=== PATIENT | female | born 1955 | race Two or more races ===

== ENCOUNTER 2019-07-18 19:02 | Inpatient (IN) | payer MEDICARE, MEDICAID ==
[~2019-07-18] VITALS: Ht 172.7 cm; Wt 69.9 kg
[2019-07-18 19:14] VITALS: BP 157/88
--- NOTE | 2019-07-18 19:14 | NUR ---
ED Nurse Note: pt ambulated into ED from home CO generalized weakness and elevated blood sugar; pt's daughter reports a blood sugar of over 300 at home. pt's daughter states constipation for over a week, pt says she strains and struggles to void d/t previous hx of stroke. pt's home health nurse and PCP Dr. Kirby advise that she come into ED. Awaiting ermd at bedside. BP elevated, ERMD aware. pt aao x 4.
--- NOTE | 2019-07-18 19:15 | NUR ---
ED Nurse Note: pt has weak and impaired gait d/t previous hx of CVA; pt skin intact. Pt has tremors in left arm. pt incontinent but able to use bedpan.
--- NOTE | 2019-07-18 19:19 | NUR ---
ED Nurse Note: pt daughter and sister at bedside
--- NOTE | 2019-07-18 19:20 | NUR ---
ED Nurse Note: ERMD at bedside
--- NOTE | 2019-07-18 19:28 | Emergency Room Report ---
History of Present Illness General Chief Complaint: Generalized Weakness Source: Patient, Family Member Present Illness HPI Patient presents with several days of having difficulty controlling her blood sugar. The patient is on insulin at this time. In addition she has frequency and urinary incontinence. In addition she has been constipated. She did move her bowels this morning and a slight amount. She is complaining about rectal pain and some skin inflammation there. She has itching around her skin. She has generalized weakness at this time. She denies chest pain, palpitations, nausea or vomiting. She is also complaining of dental pain L lower molars. Longstanding, but worsened recently. Allergies: Coded Allergies: CODEINE (Verified Allergy, Unknown, 07/18/19) Patient History Past Medical History: see triage record Social History: Denies: smoking, alcohol use, drug use Reviewed Nursing Documentation: PMH: Agreed; PSxH: Agreed Nursing Documentation-PMH Hx Hypertension: Yes Hx Diabetes: Yes Hx Cerebrovascular Accident: Yes - jan 2020 Hx Seizures: Yes Physical Exam Vital Signs Date Time Temp Pulse Resp B/P (MAP) Pulse Ox O2 Delivery O2 Flow Rate FiO2 07/18/19 19:04 99.0 93 18 157/88 (111) 97 Room Air Sp02 EP Interpretation: reviewed, normal General Appearance: no apparent distress, alert, thin, Chronically Ill Head: normocephalic Eyes: bilateral eye normal inspection, bilateral eye PERRL, bilateral eye EOMI ENT: moist mucus membranes, other - teeth 18 and 19 (L molars) loose and tender , no pus Neck: full range of motion, supple Respiratory: chest non-tender, lungs clear, normal breath sounds Cardiovascular #1: regular rate, rhythm, no edema Cardiovascular #2: 2+ radial (R) Gastrointestinal: normal inspection, non tender, no mass, non-distended, decreased bowel sounds Musculoskeletal: back normal, normal range of motion, gait/station normal Neurologic: alert, oriented x3 Medical Decision Making Diagnostic Impression: Primary Impression: Hyperglycemia Additional Impressions: Failure to thrive Qualified Codes: R62.7 - Adult failure to thrive Urine nitrite positive Periodontal infection Constipation Qualified Codes: K59.00 - Constipation, unspecified Dehydration ER Course Patient presents with generalized weakness, frequency and tooth pain. She also complains of constipation. Differential includes acute myocardial infarction, polymyalgia rheumatica, hyperglycemia, occult infection, dental infection, urinary tract infection, electrolyte imbalance, constipation, fecal impaction, hypothyroidism amongst others. Evaluation with EKG, chest x-ray and labs. Patient treated with IV hydration and glucose determination. 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 EKG without injury. Chest x-ray no infiltrates. Labs with normal white count. Sed rate slightly elevated. CMP with elevated BUN suggesting dehydration. Urinalysis positive nitrites with no significant pyuria. TSH normal. Patient has not taken her blood pressure medication today. Metoprolol given. Patient improved with IV hydration. Glucose improving. Complaining of tooth pain. Viscous lidocaine applied topically. Rocephin Rocephin begun both for possible UTI and also periodontal infection. Discussed results with patient and family. Patient admitted for further evaluation and treatment. Laboratory Tests Test 07/18/19 19:49 07/18/19 20:20 07/18/19 20:30 Prothrombin Time 10.2 SEC (9.30-11.50) Prothrombin Time INR 1.0 (0.9-1.1) Activated Partial Thromboplast Time 22 SEC (23-33) L Sodium Level 143 MMOL/L (136-145) Potassium Level 4.3 MMOL/L (3.5-5.1) Chloride Level 104 MMOL/L (98-107) Carbon Dioxide Level 28 MMOL/L (21-32) Anion Gap 11 mmol/L (5-15) Blood Urea Nitrogen 22 mg/dL (7-18) H Creatinine 0.7 MG/DL (0.55-1.30) Estimate Glomerular Filtration Rate > 60 mL/min (>60) Glucose Level 299 MG/DL (74-106) H Lactic Acid Level 1.60 mmol/L (0.4-2.0) Calcium Level 9.5 MG/DL (8.5-10.1) Magnesium Level 2.2 MG/DL (1.8-2.4) Total Bilirubin 0.2 MG/DL (0.2-1.0) Aspartate Amino Transferase (AST) 33 U/L (15-37) Alanine Aminotransferase (ALT) 73 U/L (12-78) Alkaline Phosphatase 168 U/L (46-116) H Total Creatine Kinase 62 U/L (26-308) Troponin I 0.007 ng/mL (0.000-0.056) Pro-B-Type Natriuretic Peptide 134 pg/mL (0-125) H Total Protein 7.8 G/DL (6.4-8.2) Albumin 3.6 G/DL (3.4-5.0) Globulin 4.2 g/dL Albumin/Globulin Ratio 0.9 (1.0-2.7) L Thyroid Stimulating Hormone (TSH) 2.618 uiU/mL (0.358-3.740) White Blood Count 6.6 K/UL (4.8-10.8) Red Blood Count 3.79 M/UL (4.20-5.40) L Hemoglobin 11.6 G/DL (12.0-16.0) L Hematocrit 34.7 % (37.0-47.0) L Mean Corpuscular Volume 92 FL (80-99) Mean Corpuscular Hemoglobin 30.6 PG (27.0-31.0) Mean Corpuscular Hemoglobin Concent 33.3 G/DL (32.0-36.0) Red Cell Distribution Width 11.9 % (11.6-14.8) Platelet Count 188 K/UL (150-450) Mean Platelet Volume 6.3 FL (6.5-10.1) L Neutrophils (%) (Auto) 54.5 % (45.0-75.0) Lymphocytes (%) (Auto) 36.5 % (20.0-45.0) Monocytes (%) (Auto) 6.2 % (1.0-10.0) Eosinophils (%) (Auto) 2.0 % (0.0-3.0) Basophils (%) (Auto) 0.9 % (0.0-2.0) Erythrocyte Sedimentation Rate 48 MM/HR (0-30) H Urine Color Pale yellow Urine Appearance Clear Urine pH 6.5 (4.5-8.0) Urine Specific [place] 1.015 (1.005-1.035) Urine Protein Negative (NEGATIVE) Urine Glucose (UA) 4+ (NEGATIVE) H Urine Ketones Negative (NEGATIVE) Urine Blood 3+ (NEGATIVE) H Urine Nitrite Negative (NEGATIVE) Urine Bilirubin Negative (NEGATIVE) Urine Urobilinogen Normal MG/DL (0.0-1.0) Urine Leukocyte Esterase 1+ (NEGATIVE) H Urine RBC 2-4 /HPF (0 - 2) H Urine WBC 2-4 /HPF (0 - 2) Urine Squamous Epithelial Cells Occasional /LPF Urine Bacteria Few /HPF (NONE) EKG Diagnostic Results Rate: tachycardiac Rhythm: NSR ST Segments: no acute changes - Right bundle branch block left axis deviation Rhythm Strip Diag. Results EP Interpretation: yes Rhythm: no PVC's, no ectopy, other - Sinus tachycardia Chest X-Ray Diagnostic Results Chest X-Ray Diagnostic Results : Chest X-Ray Ordered: Yes # of Views/Limited/Complete: 1 View Indication: Other EP Interpretation: Yes Interpretation: no consolidation, no effusion, no pneumothorax Impression: No acute disease Electronically Signed by: Electronically signed by Imer Smith MD Last Vital Signs Date Time Temp Pulse Resp B/P (MAP) Pulse Ox O2 Delivery O2 Flow Rate FiO2 07/19/19 00:00 98.4 85 20 149/85 (106) 98 07/18/19 23:40 Room Air Status: improved Disposition: ADMITTED INPATIENT Condition: Serious Referrals: NON PHYSICIAN (PCP) Imer Smith MD Jul 18, 2019 19:28
[2019-07-18] MEDS ORDERED: Bacitracin Oint UD TOPIC ONE (19:30)
[2019-07-18] MEDS ORDERED: KEPPRA500 M4 ORAL (19:30)
[2019-07-18] MEDS ORDERED: ASPIRIN81 MG ORAL (19:30)
[2019-07-18] MEDS ORDERED: VITAMIN D34000 UNIT PO (19:30)
[2019-07-18] MEDS ORDERED: GLIPIZIDE5 MG ORAL (19:30)
[2019-07-18] MEDS ORDERED: LANTUS SOL100 UNIT/1 SUBQ (19:30)
[2019-07-18] MEDS ORDERED: CLOPIDOGREL75 MG ORAL (19:30)
[2019-07-18] MEDS ORDERED: DOCUSATE SODIU100 M2 ORAL (19:30)
[2019-07-18] MEDS ORDERED: METOPROLOL TART25 MG ORAL (19:30)
[2019-07-18] MEDS ORDERED: GABAPENTIN300 MG ORAL (19:30)
--- NOTE | 2019-07-18 19:45 | NUR ---
ED Nurse Note: EKG per devil tender at bedside
--- NOTE | 2019-07-18 20:10 | NUR ---
ED Nurse Note: xray at bedside
--- NOTE | 2019-07-18 20:20 | NUR ---
ED Nurse Note: all blood work sent to lab
--- NOTE | 2019-07-18 20:21 | Diagnostic Imaging Report ---
EXAM: XR Chest, 1 View CLINICAL HISTORY: WEAK TECHNIQUE: Frontal view of the chest. COMPARISON: None FINDINGS: Lungs: There is mild pulmonary vascular congestion. There is no confluent airspace disease. Pleural space: No significant pleural effusion or pneumothorax. Heart: The heart size at the upper limits of normal. Bones/joints: No acute bony abnormality. IMPRESSION: Mild pulmonary vascular congestion.
[2019-07-18 20:26] LABS: ANION GAP 11 mmol/L (5-15); BLOOD UREA NITROGEN 22 mg/dL (7-18); CALCIUM 9.5 MG/DL (8.5-10.1); CARBON DIOXIDE 28 MMOL/L (21-32); CHLORIDE 104 MMOL/L (98-107); CREATININE 0.7 MG/DL (0.55-1.30); POTASSIUM 4.3 MMOL/L (3.5-5.1); SODIUM 143 MMOL/L (136-145)
[2019-07-18 20:30] LABS: ALANINE AMINOTRANSFERASE 73 U/L (12-78); ALBUMIN 3.6 G/DL (3.4-5.0); ALBUMIN/GLOBULIN RATIO 0.9 (1.0-2.7); ALKALINE PHOSPHATASE 168 U/L (46-116); ASPARTATE AMINO TRANSFERASE 33 U/L (15-37); BILIRUBIN,TOTAL 0.2 MG/DL (0.2-1.0); CREATINE KINASE 62 U/L (26-308)
[2019-07-18 20:35] LABS: BASOPHILS % (AUTO) 0.9 % (0.0-2.0); HEMATOCRIT 34.7 % (37.0-47.0); HEMOGLOBIN 11.6 G/DL (12.0-16.0); LYMPHOCYTES % (AUTO) 36.5 % (20.0-45.0); MEAN CORPUSCULAR VOLUME 92 FL (80-99); MONOCYTES % (AUTO) 6.2 % (1.0-10.0); NEUTROPHILS % (AUTO) 54.5 % (45.0-75.0); PLATELET COUNT 188 K/UL (150-450); RED BLOOD COUNT 3.79 M/UL (4.20-5.40); RED CELL DISTRIBUTION WIDTH 11.9 % (11.6-14.8); WHITE BLOOD COUNT 6.6 K/UL (4.8-10.8)
--- NOTE | 2019-07-18 20:45 | NUR ---
ED Nurse Note: repeat blood work sent to lab d/t coagulation
[2019-07-18] MEDS ORDERED: Metoprolol Succinate XL 50mg tab ORAL ONE (21:00)
[2019-07-18] MEDS ORDERED: Metoprolol Succinate XL 25mg tab ORAL ONE (21:00)
[2019-07-18] MEDS ORDERED: Lidocaine 2% Visc 15ml soln ORAL ONE (21:15)
[2019-07-18] MEDS ORDERED: cefTRIAXone 1 GM in NS 55 ML IVPB ONE (21:15)
[2019-07-18 21:20] LABS: APPEARANCE,URINE CLEAR; BILIRUBIN, URINE NEGATIVE (NEGATIVE); COLOR,URINE PALE YELLOW; GLUCOSE, URINE (UA) 4+ (NEGATIVE); KETONES,URINE NEGATIVE (NEGATIVE); LEUKOCYTE ESTERASE ,URINE 1+ (NEGATIVE); NITRITE,URINE NEGATIVE (NEGATIVE); PH,URINE 6.5 (4.5-8.0); PROTEIN,URINE NEGATIVE (NEGATIVE); UROBILINOGEN,URINE NORMAL MG/DL (0.0-1.0)
[2019-07-18] MEDS ORDERED: Lidocaine 1% MPF 10mg/ml 5ml INJ ONE (21:30)
[2019-07-18] MEDS ORDERED: DiphenhydrAMINE 25mg Tab ORAL PRN (21:30)
[2019-07-18] MEDS ORDERED: Miralax 17gm pkt ORAL PRN (21:30)
[2019-07-18 21:42] VITALS: BP 170/78
--- NOTE | 2019-07-18 21:45 | NUR ---
ED Nurse Note: all medications administered, pt tolerated well. no s/s of distress noted. no adverse reactions noted.
--- NOTE | 2019-07-18 23:05 | NUR ---
ED Nurse Note: Report given to GAGE Nunezmeeting specialist
[2019-07-18 23:30] VITALS: BP 163/77
--- NOTE | 2019-07-18 23:40 | NUR ---
ER DISCHARGE NOTE: Patient is cleared to be discharged to telemetry unit per ERMD, pt is aox4, on room air, with stable vital signs. pt was able to verbalize understanding. pt is unable to ambulate steadily d/t previous stroke. pt gave all belongings to daughter, noted on belongings list. Report given to GAGE Nunez. Pt trasnferred to telemetry unit with diet tech and one RN on cardiac cath lab radiology technologist. Pts daughter and sister met pt in new room.
--- NOTE | 2019-07-18 23:50 | NUR ---
NURSE NOTES: Received patient from ED. Patient on room air, no signs of respiratory distress. Alert and oriented to self, place, and situation. Patient does not know the day or month. 20 gauge IV on right ac, started NS at 75ml/hr as ordered. Daughters at bedside. Bed in low position, locked, bed alarm on, call light within reach. Oriented patient to the room and the use of call light.
[2019-07-19] VITALS (7 sets, daily range): BP systolic 140–176; BP diastolic 73–85
[2019-07-19] MEDS: Morphine Sulfate 2mg/ml Inj(IV/IM USE ONLY) IVP PRN ×2 (00:28→07:16)
[2019-07-19] MEDS: Enoxaparin 40mg Inj SUBQ SCH ×2 (00:29→20:49)
--- NOTE | 2019-07-19 00:30 | NUR ---
NURSE NOTES: Patient c/o tooth pain, 8/10 and itching all over the body. Administered morphine 2mg ivp and benadryl 25mg po.
[2019-07-19] MEDS: Levemir Flexpen SUBQ SCH ×2 (00:33→20:49)
[2019-07-19] MEDS: NovoLOG Insulin Flexpen SUBQ SCH ×5 (00:34→20:50)
[2019-07-19 07:20] LABS: BASOPHILS % (AUTO) 0.8 % (0.0-2.0); EOSINOPHILS % (AUTO) 2.5 % (0.0-3.0); HEMATOCRIT 33.3 % (37.0-47.0); HEMOGLOBIN 11.6 G/DL (12.0-16.0); LYMPHOCYTES % (AUTO) 45.5 % (20.0-45.0); MEAN CORPUSCULAR VOLUME 89 FL (80-99); MONOCYTES % (AUTO) 7.7 % (1.0-10.0); NEUTROPHILS % (AUTO) 43.5 % (45.0-75.0); PLATELET COUNT 172 K/UL (150-450); RED BLOOD COUNT 3.75 M/UL (4.20-5.40); RED CELL DISTRIBUTION WIDTH 10.8 % (11.6-14.8); WHITE BLOOD COUNT 6.2 K/UL (4.8-10.8)
[2019-07-19 07:29] LABS: ANION GAP 8 mmol/L (5-15); BLOOD UREA NITROGEN 12 mg/dL (7-18); CALCIUM 8.5 MG/DL (8.5-10.1); CARBON DIOXIDE 27 MMOL/L (21-32); CHLORIDE 106 MMOL/L (98-107); CHOLESTEROL 148 MG/DL (< 200); CREATININE 0.5 MG/DL (0.55-1.30); HDL CHOLESTEROL 60 MG/DL (40-60); POTASSIUM 3.8 MMOL/L (3.5-5.1); SODIUM 141 MMOL/L (136-145); TRIGLYCERIDES 46 MG/DL (30-150)
--- NOTE | 2019-07-19 07:30 | NUR ---
NURSE NOTES: Received patient in bed. Awake, alert, verbal, able to make needs known. On room air. No respiratory distress. Call light within reach. Will continue plan fo care.
[2019-07-19] MEDS: GlipiZIDE 5mg tab ORAL SCH (08:54)
[2019-07-19] MEDS: Metoprolol Succinate XL 25mg tab ORAL SCH (08:54)
[2019-07-19] MEDS: Docusate 100mg cap ORAL SCH ×2 (08:55→20:41)
[2019-07-19] MEDS: Aspirin Baby 81mg ORAL SCH (08:55)
[2019-07-19] MEDS: Lisinopril 2.5mg tab ORAL SCH (08:55)
[2019-07-19] MEDS ORDERED: Docusate 100mg cap ORAL SCH (09:00)
--- NOTE | 2019-07-19 09:52 | NUR ---
NURSE NOTES: Informed Dr. Kirby via telephone that patient is vomiting, PRN zofran given. Patient is complaining that she's having upset stomach. With orders to have Abdo US and add amylase and lipase to today's lab.
[2019-07-19 10:08] LABS: AMYLASE 47 U/L (25-115)
--- NOTE | 2019-07-19 10:20 | NUR ---
NURSE NOTES: Spoke to patient's daughter via telephone. Informed that patient is having nausea and vomiting with complaints of upset stomach. And thar primary MD Dr. Kirby is aware. With abdominal ultrasound order, to be done in the afternoon. Patient will remain NPO at this time.
--- NOTE | 2019-07-19 12:44 | NUR ---
HAND-OFF: Report given to GAGE Lawton.
--- NOTE | 2019-07-19 13:00 | NUR ---
NURSE NOTES: Received patient from Madhav Andre. Patient is awake and alert resting comfortably in bed. Patient stated she feels better than she was earlier. B/p taken 151/75. Patient NPO awaiting ultrasound of the abdomen to be taken today. Will follow
--- NOTE | 2019-07-19 13:15 | NUR ---
NURSE NOTES: Dr. Kirby on the floor. Seen and examine patient. MD updated re:patients status. Also clarified with MD that patient is being admitted to tele. will follow.
--- NOTE | 2019-07-19 13:29 | NUR ---
PT Note Attempted to see patinet for PT eval/tx but patient c/o feeling nauseated and has been vomiting. RN was made aware.
--- NOTE | 2019-07-19 14:55 | History and Physical ---
History of Present Illness General Date patient seen: Jul 19, 2019 Time patient seen: 11:00 Reason for Hospitalization: Generalized Weakness Present Illness HPI Patient presented to the ED last night with several days of having difficulty controlling her blood sugar at home. The patient is on insulin Lantus 10 units QHS. She reports having had a CVA last years and was treated at [facility], then went to SNF at [facility] and subsequently home. In addition she has frequency and urinary incontinence. In addition she has been constipated. She did move her bowels yesterday morning and a slight amount. She is complaining about rectal pain and some skin inflammation on evaluation in the ED. She has itching around her skin. She has generalized weakness at this time. She denies chest pain, palpitations, nausea or vomiting. She is also complaining of dental pain L lower molars. Longstanding, but worsened recently. She was admitted for further management Allergies: Coded Allergies: CODEINE (Verified Allergy, Unknown, 07/18/19) Medication History Scheduled Aspirin* (Aspirin*), 81 MG ORAL DAILY, (Reported) Clopidogrel* (Clopidogrel*), 75 MG ORAL DAILY, (Reported) Docusate Sodium (Docusate Sodium), 100 MG ORAL DAILY, (Reported) Gabapentin* (Gabapentin*), 300 MG ORAL BEDTIME, (Reported) Glipizide* (Glipizide*), 5 MG ORAL BIDAC, (Reported) Insulin Glargine (Lantus), 0 SUBQ BEDTIME, (Reported) Levetiracetam (Keppra), 500 MG ORAL EVERY 12 HOURS, (Reported) Metoprolol Tartrate* (Metoprolol Tartrate*), 25 MG ORAL EVERY 12 HOURS, ( Reported) Miscellaneous Medications Cholecalciferol (Vitamin D3) (Vitamin D3), 5,000 UNIT PO, (Reported) Patient History Healthcare decision maker Laurita Resuscitation status Full Code Advanced Directive on File No Review of Systems Constitutional: Reports: see HPI All Other Systems: negative except mentioned in HPI Physical Exam General Appearance: WD/WN Lines, tubes and drains: peripheral HEENT: normocephalic, other - Lower 2 molars loose Cardiovascular/Chest: normal rate Abdomen: non tender Neurologic: poultryman II-XII grossly normal Last 24 Hour Vital Signs Date Time Temp Pulse Resp B/P (MAP) Pulse Ox O2 Delivery O2 Flow Rate FiO2 3/7/20 12:54 82 151/75 (100) 07/19/19 12:00 98.1 80 17 176/85 (115) 97 07/19/19 11:43 90 07/19/19 09:00 Room Air 07/19/19 08:55 150/73 07/19/19 08:54 74 150/73 07/19/19 08:00 98.2 74 16 150/73 (98) 99 07/19/19 07:47 68 07/19/19 05:00 98.2 75 20 140/73 (95) 97 07/19/19 04:00 75 07/19/19 00:00 98.4 85 20 149/85 (106) 98 07/19/19 00:00 88 07/18/19 23:40 99.0 91 18 163/77 98 Room Air 07/18/19 23:30 99.0 91 16 163/77 97 Room Air 07/18/19 23:30 Room Air 07/18/19 21:42 99.0 91 20 170/78 97 Room Air 07/18/19 21:07 95 176/79 07/18/19 19:14 99.0 93 18 157/88 97 Room Air 07/18/19 19:14 93 18 Room Air 07/18/19 19:04 99.0 93 18 157/88 (111) 97 Room Air Intake and Output 07/18/19 07/19/19 19:00 07:00 Intake Total 3575 ml Output Total 1000 ml Balance 2575 ml Intake IV Total 3575 ml Output Urine Total 1000 ml # Voids 7 Laboratory Tests Test 07/18/19 19:49 07/18/19 20:20 07/18/19 20:30 07/19/19 05:30 Prothrombin Time 10.2 SEC (9.30-11.50) Prothromb Time International Ratio 1.0 (0.9-1.1) Activated Partial Thromboplast Time 22 SEC (23-33) L Sodium Level 143 MMOL/L (136-145) 141 MMOL/L (136-145) Potassium Level 4.3 MMOL/L (3.5-5.1) 3.8 MMOL/L (3.5-5.1) Chloride Level 104 MMOL/L (98-107) 106 MMOL/L (98-107) Carbon Dioxide Level 28 MMOL/L (21-32) 27 MMOL/L (21-32) Anion Gap 11 mmol/L (5-15) 8 mmol/L (5-15) Blood Urea Nitrogen 22 mg/dL (7-18) H 12 mg/dL (7-18) Creatinine 0.7 MG/DL (0.55-1.30) 0.5 MG/DL (0.55-1.30) L Estimat Glomerular Filtration Rate > 60 mL/min (>60) > 60 mL/min (>60) Glucose Level 299 MG/DL (74-106) H 184 MG/DL (74-106) #H Lactic Acid Level 1.60 mmol/L (0.4-2.0) Calcium Level 9.5 MG/DL (8.5-10.1) 8.5 MG/DL (8.5-10.1) Magnesium Level 2.2 MG/DL (1.8-2.4) 1.8 MG/DL (1.8-2.4) Total Bilirubin 0.2 MG/DL (0.2-1.0) Aspartate Amino Transf (AST/SGOT) 33 U/L (15-37) Alanine Aminotransferase (ALT/SGPT) 73 U/L (12-78) Alkaline Phosphatase 168 U/L (46-116) H Total Creatine Kinase 62 U/L (26-308) Troponin I 0.007 ng/mL (0.000-0.056) Pro-B-Type Natriuretic Peptide 134 pg/mL (0-125) H Total Protein 7.8 G/DL (6.4-8.2) Albumin 3.6 G/DL (3.4-5.0) Globulin 4.2 g/dL Albumin/Globulin Ratio 0.9 (1.0-2.7) L Thyroid Stimulating Hormone (TSH) 2.618 uiU/mL (0.358-3.740) White Blood Count 6.6 K/UL (4.8-10.8) 6.2 K/UL (4.8-10.8) Red Blood Count 3.79 M/UL (4.20-5.40) L 3.75 M/UL (4.20-5.40) L Hemoglobin 11.6 G/DL (12.0-16.0) L 11.6 G/DL (12.0-16.0) L Hematocrit 34.7 % (37.0-47.0) L 33.3 % (37.0-47.0) L Mean Corpuscular Volume 92 FL (80-99) 89 FL (80-99) Mean Corpuscular Hemoglobin 30.6 PG (27.0-31.0) 31.0 PG (27.0-31.0) Mean Corpuscular Hemoglobin Concent 33.3 G/DL (32.0-36.0) 34.8 G/DL (32.0-36.0) Red Cell Distribution Width 11.9 % (11.6-14.8) 10.8 % (11.6-14.8) L Platelet Count 188 K/UL (150-450) 172 K/UL (150-450) Mean Platelet Volume 6.3 FL (6.5-10.1) L 5.5 FL (6.5-10.1) L Neutrophils (%) (Auto) 54.5 % (45.0-75.0) 43.5 % (45.0-75.0) L Lymphocytes (%) (Auto) 36.5 % (20.0-45.0) 45.5 % (20.0-45.0) H Monocytes (%) (Auto) 6.2 % (1.0-10.0) 7.7 % (1.0-10.0) Eosinophils (%) (Auto) 2.0 % (0.0-3.0) 2.5 % (0.0-3.0) Basophils (%) (Auto) 0.9 % (0.0-2.0) 0.8 % (0.0-2.0) Erythrocyte Sedimentation Rate 48 MM/HR (0-30) H Urine Color Pale yellow Urine Appearance Clear Urine pH 6.5 (4.5-8.0) Urine Specific [place] 1.015 (1.005-1.035) Urine Protein Negative (NEGATIVE) Urine Glucose (UA) 4+ (NEGATIVE) H Urine Ketones Negative (NEGATIVE) Urine Blood 3+ (NEGATIVE) H Urine Nitrite Negative (NEGATIVE) Urine Bilirubin Negative (NEGATIVE) Urine Urobilinogen Normal MG/DL (0.0-1.0) Urine Leukocyte Esterase 1+ (NEGATIVE) H Urine RBC 2-4 /HPF (0 - 2) H Urine WBC 2-4 /HPF (0 - 2) Urine Squamous Epithelial Cells Occasional /LPF Urine Bacteria Few /HPF (NONE) Hemoglobin A1c 9.8 % (4.3-6.0) H Triglycerides Level 46 MG/DL (30-150) Cholesterol Level 148 MG/DL (< 200) LDL Cholesterol 89 mg/dL (<100) HDL Cholesterol 60 MG/DL (40-60) Cholesterol/HDL Ratio 2.5 (3.3-4.4) L Amylase Level 47 U/L (25-115) Lipase 67 U/L (73-393) L Height (Feet): 5 Height (Inches): 8.00 Weight (Pounds): 154 Medications Current Medications Medications (Trade) Dose Ordered Sig/Valentin Route PRN Reason Start Time Stop Time Status Last Admin Dose Admin Acetaminophen (Tylenol) 650 mg Q4H PRN ORAL Mild Pain (Pain Scale 1-3) 07/18/19 21:30 08/17/19 21:29 Aspirin (ASA) 81 mg DAILY ORAL 07/19/19 09:00 08/18/19 08:59 07/19/19 08:55 Bisacodyl (Dulcolax) 10 mg DAILYPRN PRN RECTAL Constipation 07/18/19 21:30 08/17/19 21:29 Ceftriaxone Sodium 1 gm/ Dextrose 55 ml @ 110 mls/hr Q24H IVPB 07/19/19 21:00 07/26/19 20:59 Clopidogrel Bisulfate (Plavix) 75 mg DAILY ORAL 07/19/19 09:00 08/18/19 08:59 07/19/19 08:55 Dextrose (Dextrose 50%) 25 ml Q30M PRN IV Hypoglycemia 07/18/19 21:30 08/17/19 21:29 Dextrose (Dextrose 50%) 50 ml Q30M PRN IV Hypoglycemia 07/18/19 21:30 08/17/19 21:29 Diphenhydramine HCl (Benadryl) 25 mg Q6H PRN ORAL Itching/Pruritis 07/18/19 21:30 08/17/19 21:29 07/19/19 00:29 Docusate Sodium (Colace) 100 mg EVERY 12 HOURS ORAL 07/19/19 09:00 08/18/19 08:59 07/19/19 08:55 Enoxaparin Sodium (Lovenox) 40 mg QHS SUBQ 07/18/19 23:30 08/17/19 23:29 07/19/19 00:29 Famotidine (Pepcid) 20 mg BID ORAL 07/19/19 09:00 08/18/19 08:59 07/19/19 08:54 Gabapentin (Neurontin) 300 mg BEDTIME ORAL 07/19/19 21:00 08/18/19 20:59 Glipizide (Glucotrol) 5 mg DAILY ORAL 07/19/19 09:00 08/18/19 08:59 07/19/19 08:54 Hydralazine HCl (Apresoline) 10 mg Q4H PRN IV sbp more than 160 07/19/19 12:15 08/18/19 12:14 Insulin Aspart (NovoLOG) AC+HS SUBQ 07/19/19 11:30 08/18/19 00:00 07/19/19 11:21 Insulin Detemir (Levemir) 8 units QHS SUBQ 07/18/19 23:15 08/17/19 23:14 07/19/19 00:33 Levetiracetam (Keppra) 500 mg EVERY 12 HOURS ORAL 07/19/19 09:00 08/18/19 08:59 07/19/19 08:55 Lisinopril (ZestriL) 5 mg DAILY ORAL 07/19/19 09:00 07/20/19 09:01 07/19/19 08:55 Lisinopril (ZestriL) 10 mg DAILY ORAL 07/21/19 09:00 08/20/19 08:59 Metoprolol Succinate (Toprol XL) 12.5 mg DAILY ORAL 07/19/19 09:00 08/18/19 08:59 07/19/19 08:54 Morphine Sulfate (Morphine Sulfate) 2 mg EVERY 4 HOURS PRN IVP Moderate Pain (Pain Scale 4-6) 07/18/19 21:30 07/25/19 21:29 07/19/19 07:16 Ondansetron HCl (Zofran) 4 mg Q6H PRN IVP Nausea & Vomiting 07/18/19 21:30 08/17/19 21:29 07/19/19 08:05 Polyethylene Glycol (Miralax) 17 gm DAILYPRN PRN ORAL Constipation 07/18/19 21:30 08/17/19 21:29 Sodium Chloride 1,000 ml @ 75 mls/hr [id number] IVLG 07/18/19 22:23 08/17/19 22:22 07/19/19 11:15 Temazepam (Restoril) 15 mg DAILYPRN PRN ORAL Insomnia 07/18/19 21:30 07/25/19 21:29 Assessment/Plan Status: stable Assessment/Plan: 64 y F with prior history of IDDM, HTN, CVA who is admitted to the hospital with : 1. Poorly controlled diabetes mellitus. HbA1 9.8 Increase Levemir dose to 12 units SQ QHS and monitor Diabetes Mellitus. 2. Hypertensive heart disease Continue home medication and add evi inhibitor 3. History of CVA PT evaluation as the patient might benefit from placement at SNF, short vs halfway rehabilitation. 4. Constipation. Bowel regimen. 5. Tooth pain. Dental evaluation as outpatient will be needed. No acute signs of infection noted and she probably will need extractions. 6. DVT/GI ppx 7. FULL CODE Celestina Kirby MD Jul 19, 2019 14:55
--- NOTE | 2019-07-19 15:28 | Diagnostic Imaging Report ---
EXAM: US Abdomen Complete CLINICAL HISTORY: VOMITING TECHNIQUE: Real-time ultrasound of the abdomen (complete) with image documentation. COMPARISON: No relevant prior studies available. FINDINGS: Liver: No discrete mass demonstrated. Gallbladder: Cholecystectomy. Mild biliary ductal dilatation, common bile duct measures approximately 1.1 cm. Common bile duct: Unremarkable as visualized. Pancreas: Unremarkable as visualized Kidneys: Mild left hydronephrosis. Spleen: No splenomegaly. Aorta: Unremarkable as visualized Inferior vena cava: Unremarkable. IMPRESSION: 1. Mild left hydronephrosis. 2. Cholecystectomy. Mild biliary ductal dilatation, common bile duct measures approximately 1.1 cm.
--- NOTE | 2019-07-19 19:30 | NUR ---
NURSE NOTES: Patient in bed, alert and oriented x3. On room air, no signs of respiratory distress. 20gauge iv on right ac intact, NS infusing at 75ml/hr. Assisted patient to call daughter with hospital phone. Patient states she feels much better. Bed in low position, locked, bed alarm on, call light within reach. Padded side rails for seizure precautions.
--- NOTE | 2019-07-19 19:36 | NUR ---
HAND-OFF: Report given to Madhav Nunez. Plan of care endorsed.
[2019-07-19] MEDS ORDERED: cefTRIAXone 1gm/D5W 55ml IVPB SCH ×2 (21:00)
--- NOTE | 2019-07-19 21:28 | NUR ---
NURSE NOTES: gave complete bed bath, linen changed. No c/o pain or signs of distress.
[2019-07-20] VITALS (7 sets, daily range): BP systolic 119–149; BP diastolic 69–84
[2019-07-20] MEDS: NovoLOG Insulin Flexpen SUBQ SCH ×4 (05:56→21:42)
[2019-07-20 07:07] LABS: BASOPHILS % (AUTO) 0.6 % (0.0-2.0); EOSINOPHILS % (AUTO) 2.9 % (0.0-3.0); HEMATOCRIT 34.2 % (37.0-47.0); LYMPHOCYTES % (AUTO) 42.6 % (20.0-45.0); MEAN CORPUSCULAR VOLUME 89 FL (80-99); MONOCYTES % (AUTO) 6.2 % (1.0-10.0); NEUTROPHILS % (AUTO) 47.7 % (45.0-75.0); PLATELET COUNT 184 K/UL (150-450); RED BLOOD COUNT 3.85 M/UL (4.20-5.40); RED CELL DISTRIBUTION WIDTH 10.6 % (11.6-14.8); WHITE BLOOD COUNT 6.7 K/UL (4.8-10.8)
--- NOTE | 2019-07-20 07:15 | NUR ---
NURSE NOTES: Pt in bed having breakfast. Pt Continues to wear property assessment monitor, no cardiac or respiratory distress at this time. Bed in lowest position and locked, call light within reach, side rails are up x2 for safety. pt is not complaining of pain at this time. will continue to monitor pt.
[2019-07-20 07:29] LABS: ALANINE AMINOTRANSFERASE 262 U/L (12-78); ALBUMIN 2.7 G/DL (3.4-5.0); ALBUMIN/GLOBULIN RATIO 0.8 (1.0-2.7); ALKALINE PHOSPHATASE 162 U/L (46-116); ANION GAP 7 mmol/L (5-15); ASPARTATE AMINO TRANSFERASE 155 U/L (15-37); BILIRUBIN,TOTAL 0.3 MG/DL (0.2-1.0); BLOOD UREA NITROGEN 11 mg/dL (7-18); CALCIUM 8.7 MG/DL (8.5-10.1); CARBON DIOXIDE 29 MMOL/L (21-32); CHLORIDE 107 MMOL/L (98-107); CREATININE 0.6 MG/DL (0.55-1.30); PHOSPHORUS 3.9 MG/DL (2.5-4.9); POTASSIUM 3.7 MMOL/L (3.5-5.1); SODIUM 143 MMOL/L (136-145)
[2019-07-20] MEDS: Aspirin Baby 81mg ORAL SCH (09:28)
[2019-07-20] MEDS: Docusate 100mg cap ORAL SCH ×2 (09:28→21:46)
[2019-07-20] MEDS: GlipiZIDE 5mg tab ORAL SCH (09:28)
[2019-07-20] MEDS: Metoprolol Succinate XL 25mg tab ORAL SCH (09:29)
[2019-07-20] MEDS: Lisinopril 2.5mg tab ORAL SCH (09:29)
--- NOTE | 2019-07-20 11:41 | NUR ---
PT Note PT sofía completed, treatment initiated. Patient is cooperative and motivated. She has muscle weakness, decreased coordination and decreased standing balance, requiring assist in her mobility and gait. Patient needs PT services to increase her muscle strength and balance to improve her safety in mobility and gait to enable her to return to [facility]. Addendum: 07/20/19 at 1143 by BAM GARCIA PT Amended: Links added.
--- NOTE | 2019-07-20 14:38 | General Progress Note ---
Assessment/Plan Status: stable Assessment/Plan: 64 y F with prior history of IDDM, HTN, CVA who is admitted to the hospital with : 1. Poorly controlled diabetes mellitus. HbA1 9.8 Increase Levemir dose to 10 units SQ QHS and monitor Diabetes education. 2. Hypertensive heart disease Continue home medication and added evi inhibitor 3. History of CVA PT evaluation as the patient might benefit from placement at SNF, short vs half-way rehabilitation. 4. Constipation. Bowel regimen. 5. Tooth pain. Dental evaluation as outpatient will be needed. No acute signs of infection noted and she probably will need extractions. 6. DVT/GI ppx 7. FULL CODE 8. stop ceftriaxone as no underlying infection is noted. 9. Abnormal LFT's Ultrasound: 1. Mild left hydronephrosis. 2. Cholecystectomy. Mild biliary ductal dilatation, common bile duct measures approximately 1.1 cm. Stop APAP. Avoid hepatotoxic medication. Add Hep panel. Subjective Date patient seen: Jul 20, 2019 Time patient seen: 12:30 Allergies: Coded Allergies: CODEINE (Verified Allergy, Unknown, 07/18/19) All Systems: reviewed and negative except above Subjective PT session completed today. The patient feels unsteady and needs guidance and active PT support and training. PO diet is adequate. Sleep is ok, denies pain. She has not seen a dentist in years. Objective Last 24 Hour Vital Signs Date Time Temp Pulse Resp B/P (MAP) Pulse Ox O2 Delivery O2 Flow Rate FiO2 07/20/19 10:05 97.6 76 18 149/78 (101) 97 07/20/19 09:29 76 149/78 07/20/19 09:29 149/78 07/20/19 09:00 Room Air 07/20/19 08:00 84 07/20/19 04:00 96.8 74 18 119/69 (86) 98 07/20/19 04:00 73 07/20/19 00:00 79 07/20/19 00:00 98.0 76 16 127/76 (93) 96 07/19/19 21:34 Room Air 07/19/19 20:00 94 07/19/19 20:00 97.9 88 16 150/74 (99) 96 07/19/19 16:30 76 07/19/19 16:00 98.5 81 18 153/77 (102) 97 Intake and Output 07/19/19 07/20/19 19:00 07:00 Intake Total 650 ml 805 ml Output Total 2600 ml Balance -1950 ml 805 ml Intake Oral 500 ml IV Total 150 ml 805 ml Output Urine Total 2600 ml Laboratory Tests 07/20/19 05:15: White Blood Count 6.7, Red Blood Count 3.85L, Hemoglobin 12.0, Hematocrit 34.2L , Mean Corpuscular Volume 89, Mean Corpuscular Hemoglobin 31.2H, Mean Corpuscular Hemoglobin Concent 35.2, Red Cell Distribution Width 10.6L, Platelet Count 184, Mean Platelet Volume 5.7L, Neutrophils (%) (Auto) 47.7, Lymphocytes (%) (Auto) 42.6, Monocytes (%) (Auto) 6.2, Eosinophils (%) (Auto) 2.9, Basophils (%) (Auto) 0.6, Sodium Level 143, Potassium Level 3.7, Chloride Level 107, Carbon Dioxide Level 29, Anion Gap 7, Blood Urea Nitrogen 11, Creatinine 0.6, Estimat Glomerular Filtration Rate > 60, Glucose Level 129H, Calcium Level 8.7, Phosphorus Level 3.9, Magnesium Level 1.9, Total Bilirubin 0.3, Aspartate Amino Transf (AST/SGOT) 155H, Alanine Aminotransferase (ALT/SGPT ) 262H, Alkaline Phosphatase 162H, Total Protein 6.3L, Albumin 2.7L, Globulin 3.6, Albumin/Globulin Ratio 0.8L Height (Feet): 5 Height (Inches): 8.00 Weight (Pounds): 154 General Appearance: WD/WN EENT: PERRL/EOMI, other - loos L lower molars. Neck: non-tender Cardiovascular: normal rate, regular rhythm Respiratory/Chest: lungs clear Abdomen: non tender, soft Extremities: non-tender Neurologic: incident response engineer II-XII grossly normal, no motor/sensory deficits Skin: normal pigmentation Celestina Kirby MD Jul 20, 2019 14:38
--- NOTE | 2019-07-20 19:30 | NUR ---
NURSE NOTES: Received patient from Sophia ALMONTE. Patient in bed, on room air, no signs of respiratory distress. Bed in low position, locked, call light within reach. NS infusing at 75ml/hr via right ac 20gauge, no signs of infiltration.
--- NOTE | 2019-07-20 19:45 | NUR ---
HAND-OFF: Report given to Enrique/GAGE, pt is in stable condition.
[2019-07-20] MEDS ORDERED: Levemir Flexpen SUBQ SCH (21:00)
--- NOTE | 2019-07-20 21:00 | NUR ---
NURSE NOTES: Patient refused IVF and wanted to be disconnected from the iv line.
[2019-07-20] MEDS: Enoxaparin 40mg Inj SUBQ SCH (21:43)
[2019-07-21] VITALS: BP 155/87
--- NOTE | 2019-07-21 00:30 | NUR ---
NURSE NOTES: Notified Dr. Kirby regarding patient's c/o tooth pain. Patient refused morphine due to previous vomiting and states she just wants tylenol. Left message requesting order for tylenol.
--- NOTE | 2019-07-21 01:15 | NUR ---
NURSE NOTES: Patient c/o constipation. Administered miralax prn.
[2019-07-21 04:00] VITALS: BP 148/89
--- NOTE | 2019-07-21 06:00 | NUR ---
NURSE NOTES: Received call back from Dr. Kirby for tylenol 650mg po q4hr prn. Offered patient tylenol but patient refused stating that pain is okay right now.
[2019-07-21] MEDS: NovoLOG Insulin Flexpen SUBQ SCH ×3 (06:14→17:15)
--- NOTE | 2019-07-21 07:25 | NUR ---
NURSE NOTES: pt is in bed awake and alert x4. continued slat basket top maker, pt is not reporting SOB, cardiac discomfort or pain at this time. Bed is locked and in lowest position, call light within reach, bed alarm is on, rails up x2 for safety. Will continue to monitor pt.
[2019-07-21 08:00] VITALS: BP 137/75
[2019-07-21 08:57] LABS: BASOPHILS % (AUTO) 1.3 % (0.0-2.0); EOSINOPHILS % (AUTO) 4.3 % (0.0-3.0); HEMATOCRIT 36.2 % (37.0-47.0); HEMOGLOBIN 12.8 G/DL (12.0-16.0); LYMPHOCYTES % (AUTO) 39.9 % (20.0-45.0); MEAN CORPUSCULAR VOLUME 89 FL (80-99); MONOCYTES % (AUTO) 5.6 % (1.0-10.0); NEUTROPHILS % (AUTO) 48.9 % (45.0-75.0); PLATELET COUNT 207 K/UL (150-450); RED BLOOD COUNT 4.07 M/UL (4.20-5.40); RED CELL DISTRIBUTION WIDTH 10.9 % (11.6-14.8); WHITE BLOOD COUNT 6.3 K/UL (4.8-10.8)
[2019-07-21] MEDS ORDERED: Lisinopril 10mg tab ORAL SCH (09:00)
[2019-07-21] MEDS: Docusate 100mg cap ORAL SCH (09:18)
[2019-07-21] MEDS: Metoprolol Succinate XL 25mg tab ORAL SCH (09:18)
[2019-07-21] MEDS: GlipiZIDE 5mg tab ORAL SCH (09:19)
[2019-07-21] MEDS: Aspirin Baby 81mg ORAL SCH (09:19)
[2019-07-21 09:21] LABS: ALANINE AMINOTRANSFERASE 221 U/L (12-78); ALBUMIN/GLOBULIN RATIO 0.7 (1.0-2.7); ALKALINE PHOSPHATASE 179 U/L (46-116); ANION GAP 13 mmol/L (5-15); ASPARTATE AMINO TRANSFERASE 75 U/L (15-37); BILIRUBIN,TOTAL 0.2 MG/DL (0.2-1.0); BLOOD UREA NITROGEN 11 mg/dL (7-18); CALCIUM 9.2 MG/DL (8.5-10.1); CARBON DIOXIDE 24 MMOL/L (21-32); CHLORIDE 106 MMOL/L (98-107); CREATININE 0.6 MG/DL (0.55-1.30); POTASSIUM 3.7 MMOL/L (3.5-5.1); SODIUM 143 MMOL/L (136-145)
--- NOTE | 2019-07-21 10:10 | NUR ---
*-*DISCHARGE PLANNING*-* PATIENT HAS BEEN REFERRED TO: [facility] P: [phone] F: [phone]
[2019-07-21 12:00] VITALS: BP 142/76
[2019-07-21] MEDS ORDERED: LANTUS SOL100 UNIT/1 SUBQ (13:27)
[2019-07-21] MEDS ORDERED: BENADRYL25 MG ORAL (13:27)
[2019-07-21] MEDS ORDERED: ZESTRIL10 M1 ORAL (13:32)
--- NOTE | 2019-07-21 13:35 | Discharge Summary ---
Discharge Summary Hospital Course Date of Admission Jul 18, 2019 at 20:00 Date of Discharge 07/21/19 Admitting Diagnosis hyperglycemia/tachycardia HPI Darlin Clifton is a 64 year old female who was admitted on Jul 18, 2019 at 20:00 for Hyperglycemia/Tachycardia Procedures Abdominal ultrasound Hospital Course 64 y F with prior history of IDDM, HTN, CVA who is admitted to the hospital with : 1. Poorly controlled diabetes mellitus. HbA1 9.8 Levemir dose to 10 units SQ QHS and monitor Diabetes education provided. 2. Hypertensive heart disease Continue home medication and added evi inhibitor which will be continued. 3. History of CVA PT evaluation as the patient might benefit from placement at SNF, short vs care home rehabilitation. 4. Constipation. Bowel regimen. 5. Tooth pain. Dental evaluation as outpatient will be needed. No acute signs of infection noted and she probably will need extractions. 6. DVT/GI ppx 7. FULL CODE 8. Abnormal LFT's Ultrasound: 1. Mild left hydronephrosis. 2. Cholecystectomy. Mild biliary ductal dilatation, common bile duct measures approximately 1.1 cm. Avoid hepatotoxic medication. Add Hep panel. patient ONLY wants tylenol for pain. Will need to closely monitor LFT's Discharge Medications New Medications: Diphenhydramine Hcl* (Benadryl*) 25 Mg Capsule 25 MG ORAL Q6H PRN MDD 100 for 30 Days, #60 CAP Changed Medications: Insulin Glargine (Lantus) 100 Unit/1 Ml Insuln.pen 10 UNITS SUBQ BEDTIME for DM, #1 EA 0 Refills (Changed from: 0 ) Continued Medications: Aspirin* (Aspirin*) 81 Mg Tab.chew 81 MG ORAL DAILY for cardiac, TAB Cholecalciferol (Vitamin D3) (Vitamin D3) 4,000 Unit Capsule 5000 UNIT PO for supplmentation, CAP Clopidogrel* (Clopidogrel*) 75 Mg Tablet 75 MG ORAL DAILY for cardiac, TAB Docusate Sodium (Docusate Sodium) 100 Mg Tablet 100 MG ORAL DAILY for bowel, #30 TAB 0 Refills Gabapentin* (Gabapentin*) 300 Mg Capsule 300 MG ORAL BEDTIME for DM, CAP Glipizide* (Glipizide*) 5 Mg Tablet 5 MG ORAL BIDAC for DM, TAB Levetiracetam (Keppra) 500 Mg Tablet 500 MG ORAL EVERY 12 HOURS for sz, #60 TAB 0 Refills Metoprolol Tartrate* (Metoprolol Tartrate*) 25 Mg Tablet 25 MG ORAL EVERY 12 HOURS for HTN, TAB Discharge Condition Upon Discharge: stable Discharge Vital Signs Last Vital Signs Date Time Temp Pulse Resp B/P (MAP) Pulse Ox O2 Delivery O2 Flow Rate FiO2 07/21/19 09:19 137/75 07/21/19 09:18 77 07/21/19 09:00 Room Air 07/21/19 08:00 97.4 20 98 Discharge Disposition Patient was discharged to SNF [facility] Discharge Diagnoses: (1) Constipation (2) Hyperglycemia (3) Dehydration (4) Poorly controlled diabetes mellitus (5) Pruritus Celestina Kirby MD Jul 21, 2019 13:34
--- NOTE | 2019-07-21 13:53 | NUR ---
CASE MANAGEMENT:REVIEW 07/18/19 64 YR OLD FEMALE FROM HOME TO ER CC: WEAKNESS AND HYPERGLYCEMIA (WAS OVER 300 AT HOME) SI: HYPERGLYCEMIA. TACHYCARDIA. DEHYDRATION 99.0 93 18 157/88 97% ON RA ESR+48 BUN+22 GLUCOSE+299 IS: 1L NS BOLUS X2 TOPROL PO IV ROCEPHIN : TO TELEMETRY
--- NOTE | 2019-07-21 15:41 | NUR ---
*-*DISCHARGE PLANNED*-* PATIENT HAS BEEN ACCEPTED AND WILL BE DISCHARGE TO: [facility] P: [phone] F: [phone] # 14.[facility] S/W CM [id number] ETA 5:30PM
[2019-07-21 16:00] VITALS: BP 132/65
--- NOTE | 2019-07-21 19:25 | NUR ---
HAND OFF: report given to taty houser in stable condition
--- NOTE | 2019-07-21 19:30 | NUR ---
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 Patient on room air, no signs of distress. Alert and oriented x4. BP 151/84, HR 77, 98% on RA. Armband off, iv removed, belongings and discharge paperwork signed by patient. Patient discharged in stable condition.
== END 2019-07-21 19:30 | DRG 638 ==
LOC: EMR 19:23 → 2E 20:00 → EDBEDREQ 20:13
DX: E11.65 Type 2 diabetes mellitus with hyperglycemia (principal); N13.30 Unspecified hydronephrosis; I11.9 Hypertensive heart disease without heart failure; Z88.6 Allergy status to analgesic agent; K59.00 Constipation, unspecified; E86.0 Dehydration; Z79.82 Long term (current) use of aspirin; Z79.4 Long term (current) use of insulin
CPT/HCPCS: 36415; 71045; 76700; 80048; 80053; 80061; 80299; 81003; 82150; 82550; 82962; 83036; 83605; 83690; 83735; 83880; 84100; 84443; 84484; 85025; 85610; 85651; 85730; 86705; 86709; 86803; 87081; 87340; 93005; 96361; 96365; 99285; J1815; J2405; J7030; S5561

== ENCOUNTER 2019-08-13 12:38 | Inpatient (IN) | payer MEDICARE, MEDICAID ==
[~2019-08-13] VITALS: Ht 162.6 cm; Wt 67.8 kg
[~2019-08-13 12:38] MED LIST: ASPIRIN81 MG ORAL; BENADRYL25 MG ORAL; CLOPIDOGREL75 MG ORAL; DOCUSATE SODIU100 M2 ORAL; GABAPENTIN300 MG ORAL; GLIPIZIDE5 MG ORAL; KEPPRA500 M4 ORAL; LANTUS SOL100 UNIT/1 SUBQ; METOPROLOL TART25 MG ORAL; VITAMIN D34000 UNIT PO; ZESTRIL10 M1 ORAL
--- NOTE | 2019-08-13 12:43 | Emergency Room Report ---
History of Present Illness General Chief Complaint: Abdominal Pain Source: Patient, EMS Present Illness HPI Patient is a 65-year-old female brought in by [facility] after increased abdominal pain and vomiting. Patient had been sent in from nursing facility. Previous history of CVA with residual weakness. Allergies: Coded Allergies: CODEINE (Verified Allergy, Unknown, 07/18/19) COVID-19 Screening Contact w/high risk pt: No Recent Travel to affected area: No Experienced COVID-19 symptoms?: No Review of Systems All Other Systems: negative except mentioned in HPI Physical Exam Vital Signs Date Time Temp Pulse Resp B/P (MAP) Pulse Ox O2 Delivery O2 Flow Rate FiO2 08/13/19 12:22 97.9 119 40 157/85 (109) 99 Room Air Sp02 EP Interpretation: reviewed, normal General Appearance: normal inspection, alert, mild distress, Chronically Ill Head: atraumatic ENT: normal ENT inspection, hearing grossly normal, normal voice Neck: normal inspection, full range of motion, supple, no bony tend Respiratory: normal inspection, lungs clear, normal breath sounds, no respiratory distress, no retraction, no wheezing Cardiovascular #1: regular rate, rhythm, no edema Gastrointestinal: normal inspection, normal bowel sounds, non tender, soft, no guarding, no hernia Genitourinary: no CVA tenderness Musculoskeletal: normal inspection, back normal, normal range of motion Neurologic: alert, oriented x3, motor weakness - left upper ext weakness, responsive, speech normal Psychiatric: normal inspection, judgement/insight normal, mood/affect normal Medical Decision Making Diagnostic Impression: Primary Impression: Tachycardia Additional Impressions: Poorly controlled diabetes mellitus Emesis Abdominal pain ER Course Patient presented for abdominal pain and vomiting. Differential diagnosis include was not limited to bowel obstruction, gastroenteritis, fecal impaction among others. Because of complexity of patient's case laboratory tests and imaging studies were ordered. Patient was noted to have some prior history of renal disease.She is not noted to be currently on dialysis per Dr. Kirby. Patient's abdominal pain has unclear etiology. Patient will be admitted to the hospital for further evaluation and treatment. Dr. Kirby was contacted for inpatient management due to primary care physician Laboratory Tests Test 08/13/19 12:00 08/13/19 12:40 Urine Color Pale yellow Urine Appearance Clear Urine pH 8 (4.5-8.0) Urine Specific [place] 1.015 (1.005-1.035) Urine Protein Negative (NEGATIVE) Urine Glucose (UA) 1+ (NEGATIVE) H Urine Ketones 3+ (NEGATIVE) H Urine Blood Negative (NEGATIVE) Urine Nitrite Negative (NEGATIVE) Urine Bilirubin Negative (NEGATIVE) Urine Urobilinogen Normal MG/DL (0.0-1.0) Urine Leukocyte Esterase Negative (NEGATIVE) White Blood Count 7.9 K/UL (4.8-10.8) Red Blood Count 4.56 M/UL (4.20-5.40) Hemoglobin 13.7 G/DL (12.0-16.0) Hematocrit 39.5 % (37.0-47.0) Mean Corpuscular Volume 87 FL (80-99) Mean Corpuscular Hemoglobin 30.2 PG (27.0-31.0) Mean Corpuscular Hemoglobin Concent 34.8 G/DL (32.0-36.0) Red Cell Distribution Width 10.4 % (11.6-14.8) L Platelet Count 201 K/UL (150-450) Mean Platelet Volume 5.4 FL (6.5-10.1) L Neutrophils (%) (Auto) 56.6 % (45.0-75.0) Lymphocytes (%) (Auto) 38.3 % (20.0-45.0) Monocytes (%) (Auto) 4.1 % (1.0-10.0) Eosinophils (%) (Auto) 0.1 % (0.0-3.0) Basophils (%) (Auto) 0.9 % (0.0-2.0) Sodium Level 144 MMOL/L (136-145) Potassium Level 3.8 MMOL/L (3.5-5.1) Chloride Level 106 MMOL/L (98-107) Carbon Dioxide Level 20 MMOL/L (21-32) L Anion Gap 18 mmol/L (5-15) H Blood Urea Nitrogen 10 mg/dL (7-18) Creatinine 0.8 MG/DL (0.55-1.30) Estimated Glomerular Filtration Rate > 60 mL/min (>60) Glucose Level 191 MG/DL (74-106) H Calcium Level 9.1 MG/DL (8.5-10.1) Total Bilirubin 0.5 MG/DL (0.2-1.0) Aspartate Amino Transferase (AST) 28 U/L (15-37) Alanine Aminotransferase (ALT) 60 U/L (12-78) Alkaline Phosphatase 147 U/L (46-116) H Troponin I 0.007 ng/mL (0.000-0.056) Total Protein 7.8 G/DL (6.4-8.2) Albumin 3.6 G/DL (3.4-5.0) Globulin 4.2 g/dL Albumin/Globulin Ratio 0.9 (1.0-2.7) L Lipase 57 U/L (73-393) L Hemoglobin A1c Magnesium Level EKG Diagnostic Results Rate: normal Rhythm: NSR ST Segments: no acute changes Last Vital Signs Date Time Temp Pulse Resp B/P (MAP) Pulse Ox O2 Delivery O2 Flow Rate FiO2 08/13/19 12:22 97.9 119 40 157/85 (109) 99 Room Air Status: unchanged Disposition: ADMITTED INPATIENT Condition: Stable Gary Singleton MD Aug 13, 2019 12:43
[2019-08-13 13:06] LABS: BASOPHILS % (AUTO) 0.9 % (0.0-2.0); EOSINOPHILS % (AUTO) 0.1 % (0.0-3.0); HEMATOCRIT 39.5 % (37.0-47.0); HEMOGLOBIN 13.7 G/DL (12.0-16.0); LYMPHOCYTES % (AUTO) 38.3 % (20.0-45.0); MEAN CORPUSCULAR VOLUME 87 FL (80-99); MONOCYTES % (AUTO) 4.1 % (1.0-10.0); NEUTROPHILS % (AUTO) 56.6 % (45.0-75.0); PLATELET COUNT 201 K/UL (150-450); RED BLOOD COUNT 4.56 M/UL (4.20-5.40); RED CELL DISTRIBUTION WIDTH 10.4 % (11.6-14.8); WHITE BLOOD COUNT 7.9 K/UL (4.8-10.8)
[2019-08-13 13:20] LABS: ANION GAP 18 mmol/L (5-15); BLOOD UREA NITROGEN 10 mg/dL (7-18); CALCIUM 9.1 MG/DL (8.5-10.1); CARBON DIOXIDE 20 MMOL/L (21-32); CHLORIDE 106 MMOL/L (98-107); CREATININE 0.8 MG/DL (0.55-1.30); POTASSIUM 3.8 MMOL/L (3.5-5.1); SODIUM 144 MMOL/L (136-145)
[2019-08-13 13:24] LABS: APPEARANCE,URINE CLEAR; BILIRUBIN, URINE NEGATIVE (NEGATIVE); COLOR,URINE PALE YELLOW; GLUCOSE, URINE (UA) 1+ (NEGATIVE); KETONES,URINE 3+ (NEGATIVE); LEUKOCYTE ESTERASE ,URINE NEGATIVE (NEGATIVE); NITRITE,URINE NEGATIVE (NEGATIVE); PH,URINE 8 (4.5-8.0); PROTEIN,URINE NEGATIVE (NEGATIVE); UROBILINOGEN,URINE NORMAL MG/DL (0.0-1.0)
[2019-08-13 13:24] LABS: ALANINE AMINOTRANSFERASE 60 U/L (12-78); ALBUMIN 3.6 G/DL (3.4-5.0); ALBUMIN/GLOBULIN RATIO 0.9 (1.0-2.7); ALKALINE PHOSPHATASE 147 U/L (46-116); ASPARTATE AMINO TRANSFERASE 28 U/L (15-37); BILIRUBIN,TOTAL 0.5 MG/DL (0.2-1.0)
[2019-08-13 13:25] VITALS: BP 164/83
--- NOTE | 2019-08-13 13:30 | NUR ---
ED Nurse Note: Brought in by ambulance from long term due to abdominal pain, N/V x 2 days; patient vomited x 2, brown colored emesis ~ 200ml. Reports no cough, SOB or flu-like symptoms. Patient states she felt warm today. Patient awake, alert, oriented x 3. Regular, unlabored breathing noted. Transporter tech here taking patient to CT scan.
[2019-08-13] MEDS ORDERED: levETIRAcetam 500mg/NS100ml 100 ML IVPB ONE (13:45)
--- NOTE | 2019-08-13 14:01 | NUR ---
ED Nurse Note: Patient returned from CT scan. Bed in lowest position. Call light within reach. No facial grimacing or guarding noted.
--- NOTE | 2019-08-13 14:32 | Diagnostic Imaging Report ---
Indication: Increased abdominal pain and vomiting Technique: Spiral acquisitions obtained through the abdomen and pelvis. No oral contrast utilized, per emergency room physician request No IV contrast utilized, per referring physician request.. Multiplanar reconstructions were generated. Total dose length product 320 mGycm. CTDIvol(s) 6 mGy. Dose reduction achieved using automated exposure control Comparison: No comparison CT scans. Reference made to prior abdominal sonogram dated 07/19/2019 Findings: Lack of enteric contrast limits assessment of the GI tract. Moderate dense stool is seen in the distal colon. No evidence of colonic diverticulosis or diverticulitis. The appendix is normal, best appreciated on the coronal reconstructed images. No small bowel distention. No free or loculated intraperitoneal gas or fluid is evident. The distal esophagus, stomach, duodenum are unremarkable. The gallbladder is not visualized. Likely contrast limits assessment of the solid organs. The liver, bile ducts, pancreas, spleen, adrenals, kidneys are all unremarkable. No retroperitoneal or mesenteric mass or adenopathy. No pelvic mass or adenopathy. The uterus and adnexal structures appear unremarkable. The included lung bases are clear except for minimal dependent atelectatic changes. The bones demonstrate minimal degenerative spondylosis changes. Impression: Limited assessment of the GI tract, due to lack of enteric contrast administration No definite acute abnormality Moderate retained dense stool, could indicate constipation. Correlate with clinical history Evidence of prior cholecystectomy The CT scanner at [facility] is accredited by the [employer] and the scans are performed using protocols designed to limit radiation exposure to as low as reasonably achievable to attain images of sufficient resolution adequate for diagnostic evaluation.
[2019-08-13] MEDS ORDERED: Miralax 17gm pkt ORAL PRN (15:00)
[2019-08-13] MEDS ORDERED: LORazepam Inj 2mg/ml 1ml IV PRN (15:00)
--- NOTE | 2019-08-13 15:13 | NUR ---
ED Nurse Note: Report given to GAGE Draper.
[2019-08-13] MEDS ORDERED: DiphenhydrAMINE 25mg Tab ORAL PRN (15:15)
--- NOTE | 2019-08-13 15:30 | NUR ---
ED Nurse Note: Patient resting comfortably with no s/s of acute distress. Will continue to monitor for admission.
--- NOTE | 2019-08-13 16:35 | NUR ---
ED Nurse Note: Patient is resting comfortably, COVID swab collected per charge nurse. will continue to monitor for transport admission.
--- NOTE | 2019-08-13 17:40 | NUR ---
ED Nurse Note: Patient resting with no complaints.
--- NOTE | 2019-08-13 18:35 | NUR ---
ED Nurse Note: Patient finished 75% of dinner, will continue to monitor for report and transport to incoming shift.
--- NOTE | 2019-08-13 19:15 | NUR ---
ED Nurse Note: received report from Bonny ALMONTE.
[2019-08-13 19:30] VITALS: BP 157/88
[2019-08-13 20:00] VITALS: BP 153/75
--- NOTE | 2019-08-13 20:15 | NUR ---
TRANSFER TO FLOOR: Patient transferred to [facility] via gurney on a environmental monitoring technician in stable condition with proper ppe and cover for the transfer via alternate route as ordered, per dr. Kirby . Notified live in housekeeper and security of PUI transport Report given to Elana ALMONTE and notified of COVID swab performed for PUI. Belongings sent with patient
[2019-08-13 20:25] VITALS: BP 154/84
--- NOTE | 2019-08-13 20:25 | NUR ---
NURSE NOTES: Pt transferred safely to 241; report received from GAGE Kelly. Pt is in stable condition with no signs of distress. A+Ox4, c/o mild abdominal pain 4/10. Respirations even and unlabored on room air. Pt sinus tachy on the monitor @ 105. Temp elevated @ 100.[address] Kirby made aware and no new orders given. Bed is at lowest position, brakes engaged, siderails x3, bed alarm on, and call light within reach. Pt in stable condition; will continue to monitor.
[2019-08-13] MEDS: Enoxaparin 40mg Inj SUBQ SCH (20:59)
--- NOTE | 2019-08-13 22:51 | NUR ---
NURSE NOTES: Report given to GAGE Villatoro. Plan of care endorsed. Pt in stable condition.
--- NOTE | 2019-08-13 23:00 | NUR ---
NURSE NOTES: Received patient and report from GAGE Huitron. Patient is observed resting in bed and remains alert and oriented x3-4. No pain noted upon assessment. Pt is on 2L NC with no s/sx of acute distress. Pt on tele monitor current HR of 68 noted, no s/sx of acute distress. R AC 20g IV catheter noted to be asymptomatic, intact and patent. Fluids infusing as prescribed. Diagnostics reviewed. Pt remains resting in bed; Bed remains in the lowest position with the safety wheels engaged, call light within reach, side rails up x3 and bed alarm activated. Will continue plan of care. Will continue to monitor.
[2019-08-14] VITALS: BP 150/82
[2019-08-14 04:00] VITALS: BP 142/80
[2019-08-14 05:44] LABS: BASOPHILS % (AUTO) 0.6 % (0.0-2.0); EOSINOPHILS % (AUTO) 1.6 % (0.0-3.0); HEMATOCRIT 34.2 % (37.0-47.0); LYMPHOCYTES % (AUTO) 48.3 % (20.0-45.0); MEAN CORPUSCULAR VOLUME 88 FL (80-99); MONOCYTES % (AUTO) 6.2 % (1.0-10.0); NEUTROPHILS % (AUTO) 43.3 % (45.0-75.0); PLATELET COUNT 184 K/UL (150-450); RED BLOOD COUNT 3.88 M/UL (4.20-5.40); RED CELL DISTRIBUTION WIDTH 10.8 % (11.6-14.8)
[2019-08-14 05:58] LABS: ALANINE AMINOTRANSFERASE 46 U/L (12-78); ALBUMIN 3.1 G/DL (3.4-5.0); ALBUMIN/GLOBULIN RATIO 0.8 (1.0-2.7); ALKALINE PHOSPHATASE 123 U/L (46-116); ANION GAP 6 mmol/L (5-15); ASPARTATE AMINO TRANSFERASE 25 U/L (15-37); BILIRUBIN,TOTAL 0.4 MG/DL (0.2-1.0); BLOOD UREA NITROGEN 13 mg/dL (7-18); CALCIUM 8.9 MG/DL (8.5-10.1); CARBON DIOXIDE 28 MMOL/L (21-32); CHLORIDE 106 MMOL/L (98-107); CREATININE 0.6 MG/DL (0.55-1.30); POTASSIUM 3.7 MMOL/L (3.5-5.1); SODIUM 140 MMOL/L (136-145)
--- NOTE | 2019-08-14 07:10 | NUR ---
HAND-OFF: Report given to Sabino RN. Pt remains stable at this time.
--- NOTE | 2019-08-14 07:10 | NUR ---
NURSE NOTES: Received report from Marielena ALMONTE. Pt in bed awake and orientedx4 and able to make needs known. IV site in RAC 20G running with 1/2ns @70ml/hr patent and asymptomatic. Bed in lowest position and locked. Side railsx3 up for safety. Sinus rhythm reported from previous shift. Call light within easy reach. Reported constipation on abd CT from previous shift. Will follow up with dr. Kirby for medication . Will continue to plan of care. Addendum: 08/14/19 at 0758 by Emmy Crum RN 1/2NS running at 75ml/hr
[2019-08-14 07:41] VITALS: BP 145/81
[2019-08-14] MEDS ORDERED: Lactulose 20gm/30ml UDC ORAL SCH (08:15)
[2019-08-14] MEDS ORDERED: Milk of Magnesia 30ml Ud ORAL PRN (08:15)
[2019-08-14] MEDS ORDERED: Docusate 100mg cap ORAL PRN (08:15)
[2019-08-14] MEDS: Lactulose 20gm/30ml UDC ORAL SCH ×4 (08:31→23:35)
[2019-08-14] MEDS: GlipiZIDE 5mg tab ORAL SCH (08:32)
[2019-08-14] MEDS: Aspirin Baby 81mg ORAL SCH (08:32)
[2019-08-14] MEDS: Lisinopril 10mg tab ORAL SCH (08:33)
[2019-08-14] MEDS ORDERED: Docusate 100mg cap ORAL SCH (09:00)
[2019-08-14 12:00] VITALS: BP 164/100
[2019-08-14] MEDS: Docusate 100mg cap ORAL SCH ×2 (12:09→17:13)
--- NOTE | 2019-08-14 12:27 | NUR ---
CASE MANAGEMENT: INITIAL REVIEW 08/13/2019 64 YO F [facility] FROM [facility] CC: ABD PAIN PMHx: CVA with residual weakness SI:ABD PAIN T 97.9 HR 119 RR 40 B/P 157/85 SATS 99% ON RA LABS: CO2 20 GLU 191 ALP 147 LIPASE 57 IS: ZOFRAN IV X1 PEPCID IV X1 CT A/P Moderate retained dense stool, could indicate constipation. Evidence of prior cholecystectomy. PATIENT ADMITTED TO SDU 08/13/2019 @ 5066 DCP: SNF PLAN OF CARE: COVID TESTING PT EVAL Addendum: 08/14/19 at 1240 by Barbara Bolden CM INTERQUAL MET
--- NOTE | 2019-08-14 13:54 | History and Physical ---
History of Present Illness General Date patient seen: Aug 14, 2019 Time patient seen: 11:00 Reason for Hospitalization: Abdominal Pain Present Illness HPI 64 y/o F patient of mine at [facility] with Dx moderately controlled diabetes mellitus, htn, prior cva, She was sent to the ER due to emesis and abdominal pain. She was not able to keep food in and noted to have chills. In the ER BP 164/83 T 100 , she was admitted to the Hospital and Covid 19 rule out due to being SNF resident started. CT abdomen with constipation and stool burden was noted. Admission was requested. The patient has not had any sick contacts, no prior Covid 19 cases at her SNF. Allergies: Coded Allergies: CODEINE (Verified Allergy, Unknown, 07/18/19) COVID-19 Screening Contact w/high risk pt: No Recent Travel to affected area: No Experienced COVID-19 symptoms?: No Medication History Scheduled Aspirin* (Aspirin*), 81 MG ORAL DAILY, (Reported) Clopidogrel* (Clopidogrel*), 75 MG ORAL DAILY, (Reported) Docusate Sodium (Docusate Sodium), 100 MG ORAL DAILY, (Reported) Gabapentin* (Gabapentin*), 300 MG ORAL BEDTIME, (Reported) Glipizide* (Glipizide*), 5 MG ORAL BIDAC, (Reported) Insulin Glargine (Lantus), 10 UNITS SUBQ BEDTIME Levetiracetam (Keppra), 500 MG ORAL EVERY 12 HOURS, (Reported) Lisinopril* (Zestril*), 10 MG ORAL DAILY Metoprolol Tartrate* (Metoprolol Tartrate*), 25 MG ORAL EVERY 12 HOURS, ( Reported) Scheduled PRN Diphenhydramine Hcl* (Benadryl*), 25 MG ORAL Q6H PRN Miscellaneous Medications Cholecalciferol (Vitamin D3) (Vitamin D3), 5,000 UNIT PO, (Reported) Patient History Healthcare decision maker Resuscitation status Full Code Advanced Directive on File Review of Systems All Other Systems: negative except mentioned in HPI Physical Exam General Appearance: no apparent distress Lines, tubes and drains: peripheral HEENT: normocephalic, atraumatic Neck: normal alignment Respiratory/Chest: lungs clear, normal breath sounds Cardiovascular/Chest: normal rate Abdomen: soft Extremities: normal range of motion 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 Last 24 Hour Vital Signs Date Time Temp Pulse Resp B/P (MAP) Pulse Ox O2 Delivery O2 Flow Rate FiO2 08/14/19 12:00 Nasal Cannula 2.0 08/14/19 12:00 81 08/14/19 12:00 97.1 108 18 164/100 (121) 94 08/14/19 08:33 145/81 08/14/19 08:32 100 145/81 08/14/19 08:00 74 08/14/19 08:00 Nasal Cannula 2.0 08/14/19 07:41 98.0 100 18 145/81 (102) 95 08/14/19 04:00 98.5 101 18 142/80 (100) 96 08/14/19 04:00 Nasal Cannula 2.0 08/14/19 03:34 63 08/14/19 00:00 Nasal Cannula 2.0 08/14/19 00:00 98.6 102 20 150/82 (104) 95 08/13/19 23:31 68 08/13/19 22:19 Room Air 08/13/19 22:06 94 08/13/19 21:29 97.9 08/13/19 21:00 105 154/84 08/13/19 20:25 122 08/13/19 20:25 100.0 109 20 154/84 (107) 94 08/13/19 20:15 98.9 89 18 153/75 97 Room Air 08/13/19 20:00 98.9 89 18 153/75 97 Room Air 08/13/19 19:30 98.8 87 18 157/88 97 Room Air Intake and Output 08/13/19 08/14/19 19:00 07:00 Intake Total 100 ml 630 ml Balance 100 ml 630 ml Intake Oral 30 ml IV Total 100 ml 600 ml # Voids 1 Laboratory Tests Test 08/14/19 03:45 White Blood Count 9.0 K/UL (4.8-10.8) Red Blood Count 3.88 M/UL (4.20-5.40) L Hemoglobin 12.0 G/DL (12.0-16.0) Hematocrit 34.2 % (37.0-47.0) L Mean Corpuscular Volume 88 FL (80-99) Mean Corpuscular Hemoglobin 31.0 PG (27.0-31.0) Mean Corpuscular Hemoglobin Concent 35.1 G/DL (32.0-36.0) Red Cell Distribution Width 10.8 % (11.6-14.8) L Platelet Count 184 K/UL (150-450) Mean Platelet Volume 5.3 FL (6.5-10.1) L Neutrophils (%) (Auto) 43.3 % (45.0-75.0) L Lymphocytes (%) (Auto) 48.3 % (20.0-45.0) H Monocytes (%) (Auto) 6.2 % (1.0-10.0) Eosinophils (%) (Auto) 1.6 % (0.0-3.0) Basophils (%) (Auto) 0.6 % (0.0-2.0) Sodium Level 140 MMOL/L (136-145) Potassium Level 3.7 MMOL/L (3.5-5.1) Chloride Level 106 MMOL/L (98-107) Carbon Dioxide Level 28 MMOL/L (21-32) Anion Gap 6 mmol/L (5-15) Blood Urea Nitrogen 13 mg/dL (7-18) Creatinine 0.6 MG/DL (0.55-1.30) Estimat Glomerular Filtration Rate > 60 mL/min (>60) Glucose Level 140 MG/DL (74-106) H Hemoglobin A1c 9.1 % (4.3-6.0) H Calcium Level 8.9 MG/DL (8.5-10.1) Magnesium Level 2.0 MG/DL (1.8-2.4) Total Bilirubin 0.4 MG/DL (0.2-1.0) Aspartate Amino Transf (AST/SGOT) 25 U/L (15-37) Alanine Aminotransferase (ALT/SGPT) 46 U/L (12-78) Alkaline Phosphatase 123 U/L (46-116) H Total Protein 6.8 G/DL (6.4-8.2) Albumin 3.1 G/DL (3.4-5.0) L Globulin 3.7 g/dL Albumin/Globulin Ratio 0.8 (1.0-2.7) L Height (Feet): 5 Height (Inches): 4.00 Weight (Pounds): 149 Medications Current Medications Medications (Trade) Dose Ordered Sig/Avlentin Route PRN Reason Start Time Stop Time Status Last Admin Dose Admin Acetaminophen (Tylenol) 650 mg Q4H PRN ORAL Mild Pain (Pain Scale 1-3) 08/13/19 15:00 09/12/19 14:59 08/13/19 20:59 Aspirin (ASA) 81 mg DAILY ORAL 08/14/19 09:00 09/28/19 08:59 08/14/19 08:32 Bisacodyl (Dulcolax) 10 mg HSPRN PRN RECTAL Constipation 08/13/19 15:00 11/11/19 14:59 Clopidogrel Bisulfate (Plavix) 75 mg DAILY ORAL 08/14/19 09:00 09/13/19 08:59 08/14/19 08:31 Dextrose (Dextrose 50%) 25 ml Q30M PRN IV Hypoglycemia 08/13/19 15:00 11/11/19 14:59 Dextrose (Dextrose 50%) 50 ml Q30M PRN IV Hypoglycemia 08/13/19 15:00 11/11/19 14:59 Diphenhydramine HCl (Benadryl) 25 mg Q6H PRN ORAL Itching 08/13/19 15:15 09/12/19 15:14 Docusate Sodium (Colace) 100 mg TID ORAL 08/14/19 13:00 09/13/19 08:14 08/14/19 12:09 Enoxaparin Sodium (Lovenox) 40 mg Q24H SUBQ 08/13/19 21:00 11/11/19 20:59 08/13/19 20:59 Gabapentin (Neurontin) 300 mg BEDTIME ORAL 08/13/19 21:00 09/12/19 20:59 08/13/19 20:59 Glipizide (Glucotrol) 5 mg DAILY ORAL 08/14/19 09:00 09/13/19 08:59 08/14/19 08:32 Lactulose (Cephulac) 20 gm Q6HR ORAL 08/14/19 08:30 09/13/19 08:29 08/14/19 12:09 Levetiracetam (Keppra) 500 mg EVERY 12 HOURS ORAL 08/13/19 21:00 09/12/19 20:59 08/14/19 08:32 Lisinopril (ZestriL) 10 mg DAILY ORAL 08/14/19 09:00 09/13/19 08:59 08/14/19 08:33 Lorazepam (Ativan 2mg/ml 1ml) 0.5 mg Q4H PRN IV For Anxiety 08/13/19 15:00 08/20/19 14:59 Magnesium Hydroxide (Mom) 30 ml DAILYPRN PRN ORAL Constipation 08/14/19 08:15 09/13/19 08:14 08/14/19 08:31 Metoprolol Tartrate (Lopressor) 25 mg EVERY 12 HOURS ORAL 08/13/19 21:00 11/11/19 20:59 08/14/19 08:32 Ondansetron HCl (Zofran) 4 mg Q6H PRN IVP Nausea & Vomiting 08/13/19 15:00 09/12/19 14:59 08/13/19 20:59 Polyethylene Glycol (Miralax) 17 gm HSPRN PRN ORAL Constipation 08/13/19 15:00 09/12/19 14:59 Sodium Chloride 1,000 ml @ 75 mls/hr [id number] IV 08/13/19 15:56 09/12/19 15:55 08/14/19 05:01 Temazepam (Restoril) 15 mg HSPRN PRN ORAL Insomnia 08/13/19 15:00 08/20/19 14:59 Assessment/Plan Status: doing well Status Narrative 64 y/o F admitted to the hospital due to : # Abdominal pain ddx include pancreatitis, ischemic bowel, constipation most likely due to CT results. Lactulose, colace, suppository was started Monitor sympthoms Lipase 57 # Moderately controlled diabetes mellitus HbA1c 9.1 Resume home regiment and adjust long acting insulin # Hypertension Resume home medication Add prn hydralazine #Emesis Supportive care # Elevated Alk Phos Monitor. ALT and ALS TB normal. # FULL CODE # Rule out Covid 19 due to SNF status Celestina Kirby MD Aug 14, 2019 13:54
[2019-08-14] MEDS ORDERED: HydrALAZINE 10mg Tab ORAL PRN (14:00)
--- NOTE | 2019-08-14 14:16 | NUR ---
*-* NO INSURANCE INFORMATION IN THE BAU UNABLE TO SEND CLINICALS OR REVIEWS *-*
--- NOTE | 2019-08-14 15:30 | NUR ---
NURSE NOTES: Dulcolax will be administered at 6pm if pt not having BM until 6PM and home meds Lantus 10units changed to Levemir 12units QHS while pt's in the hospital per Dr. Kirby
[2019-08-14 16:00] VITALS: BP 134/71
--- NOTE | 2019-08-14 19:24 | NUR ---
HAND-OFF: Report given to Marielena ALMONTE. Pt remains stable.
--- NOTE | 2019-08-14 19:30 | NUR ---
NURSE NOTES: Received patient and report from GAGE Gallo. Patient is observed resting in bed and remains alert and oriented x3-4. No pain noted upon assessment. Pt is on 2L NC with no s/sx of acute distress. Pt on tele monitor current HR of 83 noted, no s/sx of acute distress. R AC 20g IV catheter noted to be asymptomatic, intact and patent. Fluids infusing as prescribed. Diagnostics reviewed. Pt noted to be clean and dry. Pt remains resting in bed; Bed remains in the lowest position with the safety wheels engaged, call light within reach, side rails up x3 and bed alarm activated. Will continue plan of care. Will continue to monitor.
[2019-08-14 20:00] VITALS: BP 154/84
[2019-08-14] MEDS: Enoxaparin 40mg Inj SUBQ SCH (20:28)
--- NOTE | 2019-08-14 20:51 | NUR ---
NURSE NOTES: Pt c/o nausea and requests PRN Zofran. Administered Zofran as ordered. No adverse effects noted. Will continue to monitor.
[2019-08-14] MEDS ORDERED: Levemir Flexpen SUBQ SCH (21:00)
--- NOTE | 2019-08-14 23:00 | NUR ---
NURSE NOTES: Pt provided with a bed bath, oral care and linen change. Pt tolerated care well. Pt continues resting in bed; bed remains in lowest position with safety wheels engaged, side rails up x3, call light within reach and bed alarm activated. Will continue to monitor.
[2019-08-15] VITALS (8 sets, daily range): BP systolic 122–201; BP diastolic 70–95
[2019-08-15] MEDS: Lactulose 20gm/30ml UDC ORAL SCH ×2 (05:52→13:02)
--- NOTE | 2019-08-15 07:03 | NUR ---
HAND-OFF: Report given to Sabino RN. Pt remains stable at this time.
--- NOTE | 2019-08-15 07:03 | NUR ---
NURSE NOTES: Received report from Marielena ALMONTE. Pt in bed awake and orientedx4. Denied pain or SOB. sating 95% on room air. Bed in lowest position and locked. Side railsx3 up for safety. IV site in RAC 20G running with 1/2NS @75ml/hr patent and asymptomatic. Call light within easy reach. Dr. Kirby paged for c/o nausea and spinning. Awating for reply. Will continue to plan of care.
--- NOTE | 2019-08-15 07:23 | NUR ---
P.T Note P.T evaluation on hold pending swab test result to R/O CoVID.
--- NOTE | 2019-08-15 07:30 | NUR ---
NURSE NOTES: IV Zofran 4mg changed from Q6 PRN to Q4 PRN for nausea
[2019-08-15] MEDS: Lisinopril 10mg tab ORAL SCH (08:54)
[2019-08-15] MEDS: GlipiZIDE 5mg tab ORAL SCH (08:54)
[2019-08-15] MEDS: Docusate 100mg cap ORAL SCH ×3 (08:54→17:38)
[2019-08-15] MEDS: Aspirin Baby 81mg ORAL SCH (08:55)
--- NOTE | 2019-08-15 10:51 | General Progress Note ---
Assessment/Plan Status: doing well, not improved Status Narrative 64 y/o F admitted to the hospital due to : # Abdominal pain ddx include pancreatitis, ischemic bowel, constipation most likely due to CT results. Lactulose, colace, suppository was started with partial response. Add enema today. Monitor symptoms # Moderately controlled diabetes mellitus HbA1c 9.1 Adjust long acting insulin which is changed to Levemir due to Lantus NOT available at the Hospital. [address] and BRODY. # Hypertension home medication Add prn hydralazine #Emesis Supportive care # Elevated Alk Phos Monitor. ALT and ALS TB normal. # Vertigo Etiology likely Bening positional vertigo. Monitor and will start Meclizine. # FULL CODE # Rule out Covid 19 due to SNF status Celestina Kirby MD Subjective Date patient seen: Aug 15, 2019 Time patient seen: 10:00 ROS Limited/Unobtainable: No Gastrointestinal/Abdominal: Reports: nausea Allergies: Coded Allergies: CODEINE (Verified Allergy, Unknown, 07/18/19) All Systems: reviewed and negative except above Subjective Emesis episode this morning. Vertigo noted today, she feels that her room is spinning around her. Objective Last 24 Hour Vital Signs Date Time Temp Pulse Resp B/P (MAP) Pulse Ox O2 Delivery O2 Flow Rate FiO2 08/15/19 08:54 100 122/71 08/15/19 08:54 122/71 08/15/19 08:00 Nasal Cannula 2.0 08/15/19 08:00 70 08/15/19 08:00 97.9 100 18 122/71 (88) 94 08/15/19 04:00 Nasal Cannula 2.0 08/15/19 04:00 98.0 98 18 155/76 (102) 95 08/15/19 03:39 78 08/15/19 01:00 97.6 95 18 142/80 (100) 95 08/15/19 00:00 88 08/15/19 00:00 Nasal Cannula 2.0 08/14/19 20:26 87 156/85 08/14/19 20:00 Nasal Cannula 2.0 08/14/19 20:00 98.0 95 18 154/84 (107) 96 08/14/19 19:44 86 08/14/19 16:00 97.5 91 18 134/71 (92) 95 08/14/19 16:00 Nasal Cannula 2.0 08/14/19 15:57 94 08/14/19 12:00 Nasal Cannula 2.0 08/14/19 12:00 81 08/14/19 12:00 97.1 108 18 164/100 (121) 94 Intake and Output 08/14/19 08/15/19 19:00 07:00 Intake Total 1451.25 ml 1140 ml Output Total 900 ml 1300 ml Balance 551.25 ml -160 ml Intake Oral 600 ml 240 ml IV Total 851.25 ml 900 ml Output Urine Total 900 ml 1300 ml # Voids 2 # Bowel Movements 2 Height (Feet): 5 Height (Inches): 4.00 Weight (Pounds): 149 General Appearance: WD/WN EENT: PERRL/EOMI Cardiovascular: normal rate Respiratory/Chest: lungs clear Abdomen: non tender, soft Extremities: non-tender Edema: trace edema 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
[2019-08-15] MEDS ORDERED: Meclizine 25mg tab ORAL PRN ×2 (11:00→20:00)
[2019-08-15] MEDS ORDERED: Fleet's Enema 133ml RECTAL ONE (11:00)
--- NOTE | 2019-08-15 12:00 | NUR ---
NURSE NOTES: Noted Novolog insulin pen with Levemir lable in the patient's room while making rounds. Pt has the order to be given Levemir 12units QHS. But Novolog 12 units given at 8:40pm on 08/14/2019 by Marielena ALMONTE on EMAR. Pt denied nausea and vomiting. Noted blood glucose with 175mg/dl from finger tip at 12pm. Made Dr. Kirby and Yaritza, charge nurse aware.
[2019-08-15] MEDS ORDERED: Fleet's Enema 133ml RECTAL SCH (13:00)
[2019-08-15] MEDS ORDERED: Fleet's Enema 133ml RECTAL PRN (13:45)
[2019-08-15] MEDS ORDERED: DiphenhydrAMINE 25mg Tab ORAL PRN (14:00)
--- NOTE | 2019-08-15 14:00 | NUR ---
HAND-OFF: Report given to Janki ALMONTE. Pt remains stable.
--- NOTE | 2019-08-15 14:00 | NUR ---
NURSE NOTES: Patient received from SDU 241-2 to 303-2 via bed in stable condition. AOx4, calm, respirations even/unlabored on RA. Denies pain. IV 1/2 NS at 75 ml/hr connected to RAC (flushed, patent, dressing CDI). Left sided weakness 3/5, hand grasps/pedal pushes, skin warm, moves all extremities, wiggles, CMS+, no NT, pulses palpable. Purewik in place, to suction, y/cl urine noted. Belongings reviewed. Oriented patient to room and call light for safety. Bed locked, in lowest position, call light in reach, will continue to monitor.
--- NOTE | 2019-08-15 14:16 | NUR ---
*-* NO INSURANCE INFORMATION IN THE BAU UNABLE TO SEND CLINICALS OR REVIEWS *-*
[2019-08-15] MEDS ORDERED: Lactulose 20gm/30ml UDC ORAL PRN (14:30)
[2019-08-15] MEDS ORDERED: Milk of Magnesia 30ml Ud ORAL PRN (14:30)
[2019-08-15] MEDS ORDERED: LORazepam Inj 2mg/ml 1ml IV PRN (14:30)
[2019-08-15] MEDS: HydrALAZINE 10mg Tab ORAL PRN (14:56)
[2019-08-15] MEDS ORDERED: Miralax 17gm pkt ORAL PRN (15:00)
--- NOTE | 2019-08-15 15:00 | NUR ---
NURSE NOTES: Vitals obtained at 1440, BP on right calf 201/95 HR 80, BP on right arm 186/87 HR76. Administered Hydralazine 10 mg per PRN orders, will reassess BP.
--- NOTE | 2019-08-15 15:30 | NUR ---
NURSE NOTES: Patient had small emesis (50 ml, undigested food at 1515), HOB remains elevated, administered Zofran at 1524, provided oral mouth care and dry crackers with lemon bad river band soda, will continue to monitor.
[2019-08-15] MEDS: NovoLOG Insulin Flexpen SUBQ SCH ×2 (16:47→21:09)
--- NOTE | 2019-08-15 17:35 | NUR ---
NURSE NOTES: [facility], due to NV. Requested clear broth, jello and sorbet, ordered via dietary, patient tolerating well. Will continue to monitor.
[2019-08-15] MEDS ORDERED: Lactulose 20gm/30ml UDC ORAL SCH (18:00)
--- NOTE | 2019-08-15 19:26 | NUR ---
HAND-OFF: Report given to Raymond ALMONTE, rounds made. Outputs: Urine (Purewik): 500 ml Emesis: 50 ml
--- NOTE | 2019-08-15 19:28 | NUR ---
NURSE NOTES: Received report from Janki ALMONTE. Rounding is done. Patient in bed, a/ox4, and able to known her needs. Breathing is even and unlabored with Room air. IV site is intact and iv fluid is running. Purewik in place, and suction with yellow urine. Bed is on alarm, locked, and lowest position. Call light within reach. Will continue to monitor.
[2019-08-15] MEDS: Enoxaparin 40mg Inj SUBQ SCH (21:08)
[2019-08-15] MEDS: Levemir Flexpen SUBQ SCH (21:11)
[2019-08-16] VITALS: BP 112/61
[2019-08-16 04:00] VITALS: BP 140/67
[2019-08-16 05:27] LABS: BASOPHILS % (AUTO) 0.6 % (0.0-2.0); EOSINOPHILS % (AUTO) 2.5 % (0.0-3.0); HEMATOCRIT 35.7 % (37.0-47.0); HEMOGLOBIN 12.7 G/DL (12.0-16.0); MEAN CORPUSCULAR VOLUME 86 FL (80-99); MONOCYTES % (AUTO) 6.2 % (1.0-10.0); NEUTROPHILS % (AUTO) 52.7 % (45.0-75.0); PLATELET COUNT 200 K/UL (150-450); RED BLOOD COUNT 4.13 M/UL (4.20-5.40); RED CELL DISTRIBUTION WIDTH 10.4 % (11.6-14.8)
[2019-08-16] MEDS: NovoLOG Insulin Flexpen SUBQ SCH ×4 (05:32→22:40)
[2019-08-16 05:40] LABS: ANION GAP 8 mmol/L (5-15); BLOOD UREA NITROGEN 11 mg/dL (7-18); CALCIUM 8.7 MG/DL (8.5-10.1); CARBON DIOXIDE 27 MMOL/L (21-32); CHLORIDE 106 MMOL/L (98-107); CREATININE 0.5 MG/DL (0.55-1.30); POTASSIUM 3.9 MMOL/L (3.5-5.1); SODIUM 141 MMOL/L (136-145)
--- NOTE | 2019-08-16 07:36 | NUR ---
HAND-OFF: Report given to Dg ALMONTE. Patient in stable condition.
--- NOTE | 2019-08-16 07:43 | NUR ---
NURSE NOTES: Received pt from GAGE Andrade. pt was resting comfortably, no abd pain. no acute distress, call light w/in reach.
[2019-08-16 08:00] VITALS: BP 149/83
[2019-08-16] MEDS ORDERED: Lisinopril 10mg tab ORAL SCH ×2 (09:00→12:45)
[2019-08-16] MEDS: Aspirin Baby 81mg ORAL SCH (09:21)
[2019-08-16] MEDS: GlipiZIDE 5mg tab ORAL SCH (09:21)
[2019-08-16] MEDS: Docusate 100mg cap ORAL SCH ×3 (09:21→17:40)
[2019-08-16] MEDS ORDERED: 1/2 NS 1000ml IV ONE ×2 (10:31→15:14)
[2019-08-16 12:00] VITALS: BP 160/74
--- NOTE | 2019-08-16 13:25 | General Progress Note ---
Assessment/Plan Status: doing well, not improved Assessment/Plan: 64 y/o F admitted to the hospital due to : # Abdominal pain ddx include pancreatitis, ischemic bowel, constipation most likely due to CT results. Lactulose, colace, suppository was started with partial response. Add enema today. Monitor symptoms # Moderately controlled diabetes mellitus HbA1c 9.1 Adjust long acting insulin which is changed to Levemir due to Lantus NOT available at the Hospital. [address] and BRODY. # Hypertension home medication will be increased - Lisinopril to 20 mg daily starting tomorrow. 10 mg x1 dose today ordered and discussed with RN Monitor response prior to dc prn hydralazine #Emesis Supportive care, resolved. # Elevated Alk Phos Monitor. ALT and ALS TB normal. # Vertigo Resolved. Possible episode of hypoglycemia. # FULL CODE # DISPO SNF tomorrow. CV [facility] [place]. Subjective Date patient seen: Aug 16, 2019 Time patient seen: 12:00 ROS Limited/Unobtainable: No Allergies: Coded Allergies: CODEINE (Verified Allergy, Unknown, 07/18/19) All Systems: reviewed and negative except above Subjective Had a good size BM yesterday and is now tolerating diet well. BP elevated today. Objective Last 24 Hour Vital Signs Date Time Temp Pulse Resp B/P (MAP) Pulse Ox O2 Delivery O2 Flow Rate FiO2 08/16/19 12:00 98.6 68 17 160/74 (102) 99 08/16/19 09:22 76 148/77 08/16/19 09:22 148/77 08/16/19 08:00 98.4 90 17 149/83 (105) 99 08/16/19 07:49 Room Air 08/16/19 04:00 97.2 61 17 140/67 (91) 98 08/16/19 00:00 97.6 61 18 112/61 (78) 98 08/15/19 21:06 87 154/77 08/15/19 21:00 Room Air 08/15/19 20:00 98.6 87 16 154/77 (102) 98 08/15/19 16:00 98.3 83 16 158/81 (106) 98 08/15/19 14:56 186/87 08/15/19 14:42 76 186/87 (120) 08/15/19 14:40 98.2 80 18 201/95 (130) 97 Intake and Output 08/15/19 08/16/19 19:00 07:00 Intake Total 1136 ml 160 ml Output Total 1250 ml 1400 ml Balance -114 ml -1240 ml Intake Oral 536 ml 160 ml IV Total 600 ml Output Urine Total 1200 ml 1400 ml Emesis 50 ml # Bowel Movements 1 Laboratory Tests 08/16/19 04:50: White Blood Count 9.0, Red Blood Count 4.13L, Hemoglobin 12.7, Hematocrit 35.7L , Mean Corpuscular Volume 86, Mean Corpuscular Hemoglobin 30.6, Mean Corpuscular Hemoglobin Concent 35.4, Red Cell Distribution Width 10.4L, Platelet Count 200, Mean Platelet Volume 5.0L, Neutrophils (%) (Auto) 52.7, Lymphocytes (%) (Auto) 38.0, Monocytes (%) (Auto) 6.2, Eosinophils (%) (Auto) 2.5, Basophils (%) (Auto) 0.6, Sodium Level 141, Potassium Level 3.9, Chloride Level 106, Carbon Dioxide Level 27, Anion Gap 8, Blood Urea Nitrogen 11, Creatinine 0.5L, Estimat Glomerular Filtration Rate > 60, Glucose Level 114H, Calcium Level 8.7 Height (Feet): 5 Height (Inches): 4.00 Weight (Pounds): 149 General Appearance: WD/WN EENT: PERRL/EOMI Neck: supple Cardiovascular: normal rate Respiratory/Chest: lungs clear Abdomen: soft Extremities: normal range of motion 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
--- NOTE | 2019-08-16 14:51 | NUR ---
PT Note PT sofía completed, treatment initiated. Patient has muscle weakness and decreased postural stability, requiring assist in mobility and gait. Patient can benefit from PT to increase her muscle strength and balance to improve her functional mobility and gait to enable her to return to PLOF. Addendum: 08/16/19 at 1451 by BAM GARCIA PT Amended: Links added.
[2019-08-16 16:00] VITALS: BP 151/75
--- NOTE | 2019-08-16 19:30 | NUR ---
NURSE NOTES: Received report from GAGE Conte. Pt is awake, lying semi-garcia's; comfortably resting. No signs of acute distress noted. Pt denies any pain at this time. AOx4; able to make needs known. Checked IV site, line, and rate; patent and running. No erythema, bleeding, or infiltration noted. Bed at lowest position. Brakes on. Siderails up x2 and padded. Call light within reach. Will continue to monitor.
--- NOTE | 2019-08-16 19:40 | NUR ---
HAND-OFF: Report given to GAGE Bonilla. pt well tolerated with 3:3 protocol. pt is in stable condition. Addendum: 08/16/19 at 1941 by VALENTE MAO RN RN wrong pt
--- NOTE | 2019-08-16 19:41 | NUR ---
HAND-OFF: Report given to GAGE Bonilla. pt is in stable condition
[2019-08-16 20:00] VITALS: BP 152/77
[2019-08-16] MEDS: Levemir Flexpen SUBQ SCH (21:00)
[2019-08-16] MEDS: Enoxaparin 40mg Inj SUBQ SCH (22:46)
[2019-08-17] VITALS: BP 165/91
[2019-08-17] MEDS: HydrALAZINE 10mg Tab ORAL PRN ×2 (00:11→17:37)
[2019-08-17 04:00] VITALS: BP 143/81
[2019-08-17] MEDS: NovoLOG Insulin Flexpen SUBQ SCH ×3 (05:39→16:30)
[2019-08-17 05:48] LABS: ANION GAP 4 mmol/L (5-15); BLOOD UREA NITROGEN 15 mg/dL (7-18); CALCIUM 8.8 MG/DL (8.5-10.1); CARBON DIOXIDE 30 MMOL/L (21-32); CHLORIDE 107 MMOL/L (98-107); CREATININE 0.6 MG/DL (0.55-1.30); POTASSIUM 4.1 MMOL/L (3.5-5.1); SODIUM 141 MMOL/L (136-145)
[2019-08-17 05:49] LABS: BASOPHILS % (AUTO) 0.4 % (0.0-2.0); EOSINOPHILS % (AUTO) 3.1 % (0.0-3.0); HEMATOCRIT 34.4 % (37.0-47.0); HEMOGLOBIN 12.3 G/DL (12.0-16.0); LYMPHOCYTES % (AUTO) 38.6 % (20.0-45.0); MEAN CORPUSCULAR VOLUME 87 FL (80-99); MONOCYTES % (AUTO) 5.7 % (1.0-10.0); NEUTROPHILS % (AUTO) 52.1 % (45.0-75.0); PLATELET COUNT 196 K/UL (150-450); RED BLOOD COUNT 3.95 M/UL (4.20-5.40); RED CELL DISTRIBUTION WIDTH 10.3 % (11.6-14.8); WHITE BLOOD COUNT 8.4 K/UL (4.8-10.8)
--- NOTE | 2019-08-17 07:20 | NUR ---
HAND-OFF: Report given to GAGE Michele. Pt is awake and in stable condition. Plan of care endorsed.
--- NOTE | 2019-08-17 07:45 | NUR ---
NURSE NOTES: Received report from GAGE Bonilla. Pt is awake, lying semi-garcia's; comfortably resting. No signs of acute distress noted. Breathing even and unlabored Pt denies any pain at this time. A&Ox4; able to make needs known. IV intact and patent infusing. Bed at lowest position. Brakes on. Siderails up x2 and padded. Call light within reach. Will continue to monitor.
[2019-08-17 08:00] VITALS: BP 126/67
[2019-08-17] MEDS: Docusate 100mg cap ORAL SCH ×2 (08:58→12:30)
[2019-08-17] MEDS: Aspirin Baby 81mg ORAL SCH (08:59)
[2019-08-17] MEDS: GlipiZIDE 5mg tab ORAL SCH (08:59)
[2019-08-17] MEDS ORDERED: Lisinopril 20mg tab ORAL SCH (09:00)
[2019-08-17 12:00] VITALS: BP 138/76
[2019-08-17] MEDS ORDERED: LACTULOSE10 GM/153 PO (12:06)
[2019-08-17] MEDS ORDERED: LANTUS SOL100 UNIT/1 SUBQ (12:06)
[2019-08-17] MEDS ORDERED: PRINIVIL20 MG ORAL (12:06)
--- NOTE | 2019-08-17 12:10 | Discharge Summary ---
Discharge Summary Hospital Course Date of Admission Aug 13, 2019 at 13:01 Date of Discharge 08/17/19 Admitting Diagnosis ABDOMINAL PAIN HPI Darlin Clifton is a 64 year old female who was admitted on Aug 13, 2019 at 13:01 for Abdominal Pain Hospital Course 64 y/o F admitted to the hospital due to : # Abdominal pain ddx include pancreatitis, ischemic bowel, constipation most likely due to CT results. Lactulose, colace, suppository was started with partial response. Enema was needed with good response. Her appetite improved and she tolerated diet. # Moderately controlled diabetes mellitus HbA1c 9.1 Adjust long acting insulin which is changed to Levemir due to Lantus NOT available at the Hospital. [address] and BRODY. She will be discharged on 14 units QHS of Lantus. Monitor at SNF will be done and adjustments as needed. # Hypertension home medication will be increased - Lisinopril to 20 mg daily, tolerated response noted. Monitor response prior to dc prn hydralazine #Emesis Supportive care, resolved. # Elevated Alk Phos Monitor. ALT and ALS TB normal. # Vertigo Resolved. Possible episode of hypoglycemia. Not present anymore. # FULL CODE # DISPO SNF to [facility]. Discharge Discharge Vital Signs Last Vital Signs Date Time Temp Pulse Resp B/P (MAP) Pulse Ox O2 Delivery O2 Flow Rate FiO2 08/17/19 09:00 Room Air 08/17/19 08:59 126/67 08/17/19 08:59 85 08/17/19 08:00 98.4 20 99 08/15/19 12:00 2.0 Discharge Disposition Patient was discharged to Discharge Diagnoses: (1) Constipation (2) Abdominal pain (3) Hypertension (4) Poorly controlled diabetes mellitus (5) Emesis Celestina Kirby MD Aug 17, 2019 12:10
[2019-08-17 16:00] VITALS: BP 160/78
[2019-08-17 17:37] VITALS: BP 160/83
--- NOTE | 2019-08-17 18:00 | NUR ---
NURSE NOTES: Pt in stable condition. Report given to Nilson ALMONTE from [facility]. Daughter aware. All belongings are accounted for. IV and ID band removed. Report and discharge packet give to transportation. Pt transfer to [facility] by transportation via gurney.
== END 2019-08-17 18:00 | DRG 392 ==
LOC: EDBD 12:38 → EMR 12:55 → 2W 13:01 → OBSVTOIN 13:01 → INTOOBSV 13:01 → EDBEDREQ 14:41 → 3E 08-15 13:46
DX: K59.00 Constipation, unspecified (principal); R11.10 Vomiting, unspecified; R42 Dizziness and giddiness; I10 Essential (primary) hypertension; E11.65 Type 2 diabetes mellitus with hyperglycemia; Z88.6 Allergy status to analgesic agent
CPT/HCPCS: 36415; 74176; 80048; 80053; 80299; 81003; 83036; 83690; 83735; 84484; 85025; 87040; 87081; 87635; 96361; 96374; 96375; 99284; C8957; J1815; J2405; S5561